=== PATIENT | female | born 1970 | race Caucasian/White ===

== ENCOUNTER 2016-07-26 17:35 | Inpatient (IN) ==
[2016-07-26 18:16] LABS: MANUAL DIFF NEEDED? NO
[2016-07-26 18:20] LABS: BASO% 0.3 % (0.0-0.8); EOS# 0.02 X1000 (0.0-0.7); EOS% 0.3 % (0.0-10.0); HEMATOCRIT 41.7 % (37.0-47.0); HEMOGLOBIN 14.2 g/dL (12.0-16.0); IMM GRAN# 0.02 X1000 (0.0-0.04); IMM GRAN% 0.3 % (0.0-0.5); LYMPH# 1.37 X1000 (1.2-3.4); LYMPH% 22.6 % (20.5-51.1); MCHC 34.1 g/dL (33-37); MCV 85.3 FL (81-99); MONO# 0.47 X1000 (0.11-0.59); MONO% 7.7 % (1.7-9.3); MPV 10.4 FL (7.4-10.4); NEUT% 68.8 % (42.2-75.2); PLT 321 X1000 (130-400); RBC 4.89 XMIL (4.2-5.4)
[2016-07-26] MEDS ORDERED: TORADOL IV ONE (18:35)
[2016-07-26] MEDS ORDERED: ZOFRAN IV ONE (18:35)
[2016-07-26] MEDS ORDERED: NS 1,000 ML IV ONE (18:35)
[2016-07-26] MEDS ORDERED: OFIRMEV 1000 MG/ISOTONIC SOLN 100 ML IV ONE (18:35)
[2016-07-26] MEDS ORDERED: PHENERGAN IV ONE (18:36)
[2016-07-26] MEDS ORDERED: MORPHINE IV ONE (18:36)
[2016-07-26] MEDS ORDERED: SODIUM CHLORIDE 0.9% INJ ONE (18:36)
--- NOTE | 2016-07-26 18:39 | PROVIDER DOCUMENTATION ---
HPI-Abdominal Pain/GI Problem <Asa Walker - Last Filed: 07/26/16 19:15> - General Source: patient - History of Present Illness-ABD Nature of Presenting Problems: Pt is a 46 yof who presents to ER with CC of generalized abdominal pain that started this am. Pt has hx of chronic pancreatitis and alcoholism. Pt reports that she had a glass of wine last night, and has had N/V(x"all day")/D(x3-4) today. Pt denies taking any prearrival medicine for her pain/discomfort. Pt denies bloody stool/emesis, sob, dysuria, or any flank pain. On exam, pt did appear mild-moderately anxious. Abdominal Pain Onset Location: reports: generalized abdomen Pain Radiation: reports: no radiation Quality of Pain: reports: aching, cramping Severity in ED: reports: moderate Onset/Duration: reports: this morning Timing: reports: still present, constant Activities at Onset: reports: other (woke up with pain) Associated Symptoms: reports: anxiety, diarrhea, loss of appetite, nausea, vomiting. denies: arm pain, back/neck pain, chest pain, constipation, cough, diaphoresis, dizziness, fatigue, fever/chills, genitourinary problems, muscle aches, shortness of breath, sensory/motor loss, pain with inspiration, syncope, weakness, trouble walking Last BM: unsure (sometime today) Dark Stools Present?: reports: none noticed Rectal Bleeding: reports: none # of Diarrhea Episodes: 4 Rectal Pain: reports: none Emesis Description: reports: none <López Garcia - Last Filed: 07/26/16 19:32> - General Chief Complaint: Abdominal Pain Stated Complaint: ABD PAIN Time Seen by Provider: 07/26/16 18:21 Allergies/Adverse Reactions: Patient Allergies Allergy/AdvReac Type Severity Reaction Status Date / Time No Known Allergies Allergy Verified 07/26/16 18:29 Home Medications: Home Medication List Medication Instructions Recorded Confirmed Last Taken Type Pantoprazole [Protonix] 40 mg PO DAILY@0700 09/02/15 07/26/16 07/26/16 06:00 History Trazodone [Desyrel] 150 mg PO QHS #30 tablet 01/24/16 07/26/16 07/25/16 20:00 Rx Promethazine [Phenergan] 1 - 2 tab PO Q6H PRN PRN #18 tablet 06/25/16 07/26/16 Unknown Rx Vortioxetine Hydrobromide 20 mg PO DAILY 06/25/16 07/26/16 07/26/16 06:00 History [Trintellix] Review of Systems - Adult - REVIEW OF SYSTEMS - ADULT Constitutional: denies: chills, fever, fatique, night sweats Eyes: reports: no symptoms reported Ears, Nose, Mouth & Throat: reports: no symptoms reported Cardiovascular: reports: no symptoms reported Respiratory: denies: cough, dyspnea on exertion, excessive sputum production, hemoptysis, shortness of breath, wheezing Gastrointestinal: reports: abdominal pain, diarrhea, nausea, poor appetite, vomiting. denies: hematemesis, constipation, difficulty swallowing, frequent heartburn, rectal bleeding Genitourinary: denies: dysuria, flank pain, frequent UTI's, hematuria, urinary retention Musculoskeletal: reports: no symptoms reported Integumentary: reports: no symptoms reported Neurological: reports: no symptoms reported Psychiatric: reports: no symptoms reported Endocrine: reports: no symptoms reported Hematologic/Lymphatic: reports: no symptoms reported Allergic/Immunologic: reports: no symptoms reported All Other Systems: Reviewed and Negative <López Garcia - Last Filed: 07/26/16 19:32> Past History - Adult - PAST MEDICAL HISTORY-ADULT Review of Records: reports: Nursing Assessment Review, Medications Reviewed Gastrointestinal: reports: colitis, pancreatitis, other (gastroparesis) Endocrine/Immune: reports: other (hypokalemia) - PRIOR SURGERIES/PROCEDURES Surgical/Procedure History: reports: colonoscopy, cholecystectomy - IMMUNIZATION STATUS Childhood Immunizations: See Nurse Assessment Flu Vaccine: See Nurse Assessment - SOCIAL HISTORY Smoking: cigarettes, less than 1 pack/day Provider spent 3-5 mins advising pt. on dangers of tobacco.: Discussed manners to quit use, and f/u contacts for add'l counseling. <López Garcia - Last Filed: 07/26/16 19:32> Physical Exam-General - PHYSICAL EXAM-ADULT Initial Vital Signs Reviewed: Yes - CONSTITUTIONAL General Appearance: appears well, alert, moderate distress, anxious. negative: lethargic, slow to respond - RESPIRATORY Respiratory: chest non-tender, lungs clear, normal breath sounds. negative: respiratory distress, decreased breath sounds, accessory muscle use, wheezing, pain on inspiration, decreased rate, increased rate - CARDIOVASCULAR Cardiovascular: normal peripheral pulses, regular rate, rhythm. negative: bradycardia, tachycardia, irregularly irregular - GASTROINTESTINAL (ABDOMEN) Abdominal Exam: normal bowel sounds, soft, tenderness (mild mid-abdominal pain on palpation). negative: abnormal bowel sounds, hernia, mass - MUSCULOSKELETAL Back Exam: no CVA tenderness, no vertebral tenderness. negative: CVA tenderness , decreased range of motion, muscle spasm, vertebral tenderness - SKIN Integumentary: normal color, normal turgor, warm/dry. negative: diaphoresis, erythema, pallor, rash, swelling, tenderness, warm - NEUROLOGIC Neurologic: grossly normal, no motor/sensory deficits. negative: abnormal gait , focal weakness, motor weakness, sensory deficit - PSYCHIATRIC Psych/Mental Status: normal thought content, normal thought process, oriented x 3, anxious <López Garcia - Last Filed: 07/26/16 19:32> Progress - PLAN OF CARE/RESULTS Progress/Plan/Lab Results: POC: IV fluids/nausea rx/pain rx/labs/abdomen-pelvis CT Vital Signs - 24 hr 07/26/16 17:51 Temperature 97.7 F Pulse Rate 93 H Respiratory 20 Rate Blood Pressure 158/103 O2 Sat by Pulse 97 Oximetry Orders Category Date Time Status ED: Urine Bedside ORDERED Care 07/26/16 17:54 Active Saline Loc DIRECTED Care 07/26/16 17:54 Active NPO Diet 07/26/16 17:54 Active ABDOMEN/PELVIS W/O CONTRAST [CT] Stat Exams 07/26/16 18:36 Ordered ALCOHOL BLOOD Stat Lab 07/26/16 17:59 Completed AMYLASE [CHEM] Stat Lab 07/26/16 17:59 Completed CBC WITH ELECTRONIC DIFF [HEME] Stat Lab 07/26/16 17:59 Completed COMPREHENSIVE METABOLIC PANEL [CHEM] Stat Lab 07/26/16 17:59 Completed LIPASE [CHEM] Stat Lab 07/26/16 17:59 Completed UDS [URINE DRUG SCREEN] Stat Lab 07/26/16 17:35 Received URINALYSIS W/POSS RFLX CULT [URINALYSIS] Stat Lab 07/26/16 17:35 Completed 0.9% Sodium Chloride Inj [Ns] 1,000 ml Med 07/26/16 18:35 Active IV 999 mls/hr Acetaminophen [Ofirmev 1000 mg/Isotonic Soln] 100 ml Med 07/26/16 18:35 Discontinued IV NOW Ketorolac [Toradol] Med 07/26/16 18:35 Discontinued 30 mg IV NOW ONE Morphine Med 07/26/16 18:36 Discontinued 4 mg IV NOW ONE Ondansetron [Zofran] Med 07/26/16 18:35 Discontinued 8 mg IV NOW ONE Promethazine [Phenergan] Med 07/26/16 18:36 Discontinued 25 mg IV NOW ONE Sodium Chloride 0.9% Med 07/26/16 18:36 Discontinued 10 ml INJ NOW ONE Laboratory Tests 07/26/16 07/26/16 07/26/16 17:35 17:59 17:59 WBC 6.07 RBC 4.89 Hgb 14.2 Hct 41.7 MCV 85.3 MCH 29.0 MCHC 34.1 RDW Std Deviation 17.2 H Plt Count 321 MPV 10.4 Immature Gran % (Auto) 0.3 Neut % (Auto) 68.8 Lymph % (Auto) 22.6 [place] % (Auto) 7.7 Eos % (Auto) 0.3 Baso % (Auto) 0.3 Immature Gran # (Auto) 0.02 Neut # (Auto) 4.17 Lymph # (Auto) 1.37 [place] # (Auto) 0.47 Eos # (Auto) 0.02 Baso # (Auto) 0.02 Sodium 130 L Potassium 3.1 L Chloride 87 L Carbon Dioxide 23 L Anion Gap 20 BUN 2 L Creatinine 0.5 Estimated GFR/1.73 m2 > 60 BUN/Creatinine Ratio 4 Glucose 135 H Calculated Osmolality 259 Calcium 8.2 L Total Bilirubin 0.18 L AST 46 H ALT 24 Alkaline Phosphatase 96 Total Protein 6.6 Albumin 3.7 Globulin 2.9 Albumin/Globulin Ratio 1.3 Amylase 247 H Lipase 391 H Urine Source CLEAN CATCH Urine Color YELLOW Urine Turbidity CLEAR Urine pH 5.5 Ur Specific [place] 1.021 Urine Protein TRACE A Ur Glucose (Stick) NEGATIVE Ur Ketones (Stick) NEGATIVE Urine Blood TRACE A Urine Nitrite NEGATIVE Urine Bilirubin NEGATIVE Urobilinogen Dipstick NORMAL Urine Leukocytes SMALL A Urine WBC (Auto) 10-20 A Urine RBC (Auto) <10 U Epithel Cells (Auto) >10 A Urine Bacteria (Auto) 2+ Plasma/Serum Ethyl Alc 07/26/16 17:59 WBC RBC Hgb Hct MCV MCH MCHC RDW Std Deviation Plt Count MPV Immature Gran % (Auto) Neut % (Auto) Lymph % (Auto) [place] % (Auto) Eos % (Auto) Baso % (Auto) Immature Gran # (Auto) Neut # (Auto) Lymph # (Auto) [place] # (Auto) Eos # (Auto) Baso # (Auto) Sodium Potassium Chloride Carbon Dioxide Anion Gap BUN Creatinine Estimated GFR/1.73 m2 BUN/Creatinine Ratio Glucose Calculated Osmolality Calcium Total Bilirubin AST ALT Alkaline Phosphatase Total Protein Albumin Globulin Albumin/Globulin Ratio Amylase Lipase Urine Source Urine Color Urine Turbidity Urine pH Ur Specific [place] Urine Protein Ur Glucose (Stick) Ur Ketones (Stick) Urine Blood Urine Nitrite Urine Bilirubin Urobilinogen Dipstick Urine Leukocytes Urine WBC (Auto) Urine RBC (Auto) U Epithel Cells (Auto) Urine Bacteria (Auto) Plasma/Serum Ethyl Alc 147 H - CT/MRI 1 CT Study: Abdomen, Pelvis Impression: See EMR Report (Acute on Chronic pancreatitis; No biliary dilation or definite abscess.) CT Results: See report - CONSULTS/PCP/HOSPITALIST Notification #1 *Consult/PCP/Hospitalist*: Dr. Plummer (Hospitalist) Time Discussed: 19:30 Consult Disposition: Admit (Dr. Walker gave report to Dr. Plummer.) <López Garcia - Last Filed: 07/26/16 19:32> Departure - Departure Time of Disposition Order: 19:15 <Asa Walker - Last Filed: 07/26/16 19:15> - Departure Time of Disposition Order: 19:17 Certified Medical Emergency: Emergent <López Garcia - Last Filed: 07/26/16 19:32> - Departure DIAGNOSIS: Acute alcoholic pancreatitis Qualifiers: Acute pancreatitis complication: unspecified Qualified Code(s): K85.20 - Alcohol induced acute pancreatitis without necrosis or infection Disposition: ADMITTED INPATIENT 09 Condition: Stable Additional Instructions: ED Follow Up Instructions: You have been treated by a care provider in the Emergency Department. These instructions are being provided to you so you can have an understanding of how to care for yourself upon discharge. Upon discharge from the Emergency Department, you are responsible for making arrangements for follow-up care by a physician of your choice. Take all prescribed medications as directed. Return to the Emergency Department immediately for any new or worsening symptoms. You may call the Physician Referral phone number at [phone] to obtain a list of Physicians who are taking new patients. Referrals: Evan Dickson MD [Primary Care Provider] - Attestation - Scribe Verification/Attestation Scribe:: López Garcia Acting as Scribe for:: Asa Walker Scribe documention review:: This chart was documented by a scribe and accurately reflects the service the provider performed and the decisions made by the provider. <López Garcia - Last Filed: 07/26/16 19:32> Physician Attestation
[2016-07-26 19:01] LABS: AGAP 20; ALBUMIN 3.7 g/dL (3.5-5.0); ALKALINE PHOSPHATASE 96 U/L (32-104); AMYLASE 247 U/L (20-200); BUN 2 mg/dL (8-22); CALCIUM 8.2 mg/dL (8.8-10.2); CHLORIDE 87 mmol/L (98-107); COSMO 259; GOT 46 U/L (10-30); GPT 24 U/L (10-36); LIPASE 391 U/L (13-60); POTASSIUM 3.1 mmol/L (3.5-5.1); SODIUM 130 mmol/L (136-145); TCO2 23 mmol/L (25-35); TOTAL BILIRUBIN 0.18 mg/dL (0.20-1.00); TOTAL PROTEIN 6.6 g/dL (6.3-8.3)
[2016-07-26 19:02] LABS: URINE MICRO REVIEW NEEDED? NO; URINE SOURCE CLEAN CATCH
[2016-07-26 19:05] LABS: BILIRUBIN URINE NEGATIVE (NEGATIVE); BLOOD URINE TRACE (NEGATIVE); COLOR YELLOW; GLUCOSE URINE NEGATIVE (NEGATIVE); LEUKOCYTES URINE SMALL (NEGATIVE); NITRITE URINE NEGATIVE (NEGATIVE); PH URINE 5.5; PROTEIN URINE TRACE mg/dL (NEGATIVE); SP GRAVITY URINE 1.021; TURBIDITY URINE CLEAR (CLEAR); UROBILINOGEN URINE NORMAL (NORMAL)
[2016-07-26 19:07] LABS: UR EPITHELIAL CELLS >10 /HPF (<10); URINE BACTERIA 2+ /HPF; URINE CULTURE NEEDED? YES; URINE RBC <10 /HPF (<10)
[2016-07-26 19:20] LABS: UR AMPHETAMINES QUAL NONE DETECTED (NONE DETECT); UR BARBITUATES QUAL NONE DETECTED (NONE DETECT); UR BENZODIAZEPIN QUAL NONE DETECTED (NONE DETECT); UR CANNABINOIDS QUAL NONE DETECTED (NONE DETECT); UR COCAINE QUAL NONE DETECTED (NONE DETECT); UR METHADONE QUAL PRESUMPTIVE POSITIVE (NONE DETECT); UR OPIATES QUAL PRESUMPTIVE POSITIVE (NONE DETECT); UR OXYCODONE QUAL NONE DETECTED (NONE DETECT); UR PCP QUAL NONE DETECTED (NONE DETECT)
[2016-07-26] MEDS ORDERED: DILAUDID IV ONE (19:20)
[2016-07-26] MEDS ORDERED: M.V.I.-12 10 ML, FOLIC ACID 1 MG, MAGNESIUM SULFATE 1 GM, THIAMINE 100 MG in NS 1,000 ML IV ONE (19:32)
[2016-07-26] MEDS ORDERED: ATIVAN IV ONE (19:32)
[2016-07-26] MEDS ORDERED: TYLENOL PO PRN (20:56)
[2016-07-26] MEDS: SODIUM CHLORIDE 0.9% INJ SCH (21:37)
[2016-07-26] MEDS: NS 1,000 ML IV SCH (21:37)
[2016-07-26] MEDS: DILAUDID IV PRN (21:38)
[2016-07-26] MEDS: PROTONIX IV SCH (21:38)
[2016-07-26] MEDS: POTASSIUM CHLORIDE 20 MEQ/SWI 100 ML IV SCH (22:00)
[2016-07-27] MEDS: DILAUDID IV PRN ×7 (00:14→21:32)
[2016-07-27] MEDS: AMBIEN PO PRN (00:51)
[2016-07-27] MEDS: NICODERM PATCH TD SCH ×2 (00:51→21:32)
[2016-07-27] MEDS ORDERED: OFIRMEV 1000 MG/ISOTONIC SOLN 100 ML IV PRN (01:00)
[2016-07-27] MEDS: ATIVAN IV PRN ×5 (01:51→21:32)
[2016-07-27] MEDS: ROCEPHIN 1 GM/NS 50 ML IV SCH ×2 (01:51→21:32)
--- NOTE | 2016-07-27 02:24 | HISTORY AND PHYSICAL ---
PRIMARY CARE PROVIDER: Dr. Jacques Dickson. CHIEF COMPLAINT: Abdominal pain. HISTORY OF PRESENT ILLNESS: Ms. Gibson is a 46-year-old female with a past medical history of pancreatitis with a history of alcohol dependency. She was most recently admitted for pancreatitis in January of 2016. Patient presented to the ER [facility] with reports of abdominal pain in the periumbilical and epigastric areas that started this morning on July 26, 2016 at 6:00 a.m. The patient states that the pain is "piercing in nature." She reports it is constant, nonradiating. She reports that nothing helps it except for pain medicine and lying flat makes it worse. She reports associated symptoms of nausea and vomiting as well as diarrhea. The patient states that she has had 6 to 8 vomiting episodes today though she denies any hematemesis. She also reports a total of 4 diarrhea episodes today only though she denies any melena. She denies any fever, body aches, or chills. Patient reports that at present she drinks approximately 3 days a week and on those 3 days she has no more than 3 glasses of wine per day. In the ER, the patient did report to ER staff that her last drink of any alcohol was a glass of wine last night though in the ER her serum alcohol level was 147. Patient reports at this time that she is still currently smoking though has cut back and is down to less than 1 pack per day and she did express the want to quit as well. I did inquire as to whether or not the patient takes methadone or any other opiate medications though she denied this but her urine drug screen in the ER did show positive for opiates as well as methadone. Patient also did report some urinary frequency though denied any dysuria or low back pain. Upon evaluation in the ER, patient laboratory results did indicate pancreatitis with a lipase of 391 and amylase of 247. A CT abdomen and pelvis with contrast did show chronic pancreatitis though no acute inflammation. There was diverticulosis though no evidence of diverticulitis. Also, patient's urinalysis was positive for trace blood, small leukocytes, and 10 to 20 white blood cells. A urine culture has been ordered and we are awaiting those results at this time. At this time, we will admit the patient for further treatment and evaluation of her acute alcoholic pancreatitis and urinary tract infection. We will admit her to our service for [facility] though in the morning we will return her to Dr. Dickson's care and place an order for him to be notified of the patient's admission. REVIEW OF SYSTEMS: A 14-point review of systems was conducted with the patient and all were negative except for pertinent positives mentioned in above HPI. PAST MEDICAL HISTORY: 1. Bulimia. 2. Excessive water intake. 3. Gastroesophageal reflux disease. 4. Hypokalemia. 5. Colitis. 6. Pancreatitis. 7. Diverticulitis. 8. Mood disorder. PAST SURGICAL HISTORY: 1. Cholecystectomy. 2. ERCP. SOCIAL HISTORY: Patient reports that she currently lives with her mother and is not working at this time. She does report that she drinks approximately 3 days a week and up to 3 glasses of wine per day on these days. She denies any illicit drug use. Patient still currently smokes just less than 1 pack of cigarettes per day and has so for the past 30 years. FAMILY HISTORY: Positive for diabetes mellitus and she also reports that there are several family members that have had a history of cancer though she does not know what etiology. ALLERGIES: Patient reports no known allergies. HOME MEDICATIONS: 1. Trintellix 20 mg p.o. daily. 2. Trazodone 150 mg p.o. at bedtime. 3. Phenergan 25 mg 1 to 2 tablets p.o. q.6 hours p.r.n. 4. Protonix 40 mg p.o. daily. DIAGNOSTIC DATA: Laboratory results: White blood cell count 6.07. Hemoglobin 14.2. Hematocrit 41.7. Platelet count is 321. Sodium 130. Potassium 3.1. Chloride 87. Bicarbonate 23. BUN 2. Creatinine 0.5. GFR is greater than 60. Glucose 135. Calcium 8.2. Total bilirubin 0.18. AST 46. ALT 24. Alkaline phosphatase is 96. Amylase 247. Lipase 391. Serum alcohol is 147. Urinalysis was positive for trace protein and blood, small leukocytes, 10 to 20 white blood cells, and 2-plus bacteria. Urine drug screen was positive for opiates and methadone. CT abdomen and pelvis with contrast showed chronic pancreatitis though no acute inflammation. Status post cholecystectomy. Normal appendix. Diverticulosis with no evidence of diverticulitis. A 1.5 cm left ovarian cyst. Bilateral L5 pars interarticularis defects. There is also mild fatty infiltration of the liver. Pending laboratory results at this time are an EKG and urine culture. PHYSICAL EXAMINATION: VITAL SIGNS: Temperature 98.4, heart rate 94, respirations 18, blood pressure 152/93, oxygen saturation is 100% room air. GENERAL: Ms. Gibson is a well-nourished, well-developed 46-year-old female who is resting in the ER stretcher. Upon my examination, she was in no acute distress. The patient was slightly drowsy due to being given pain medication prior to my assessment though she was responsive to verbal stimuli and did answer all questions appropriately. HEENT: Head is atraumatic, normocephalic. Pupils are equal, round, reactive to light, are 3 mm bilaterally and brisk. Oral mucosa is moist. Oropharynx is clear. NECK: Supple. Trachea midline. No JVD noted. CARDIOVASCULAR: Patient has a normal S1, S2. No murmurs, gallops, or rubs appreciated with a regular rate and rhythm. PULMONARY: Patient has symmetrical chest expansion bilaterally. Lung sounds are clear to auscultation in bilateral full jacques. ABDOMEN: Soft, nondistended. Patient does report tenderness upon palpation in the periumbilical as well as epigastric areas. Bowel sounds were present in all 4 quadrants though were hypoactive. EXTREMITIES: No clubbing, cyanosis, or edema noted. Pulse, motor, and sensory were intact in all extremities. Pedal pulses as well as radial pulses were 3 plus bilaterally. INTEGUMENTARY: The patient's skin is pink, warm, dry, and intact. No lesions or sores noted. NEUROLOGICAL: Patient is alert and oriented times 3. Cranial nerves II through XII are grossly intact. ASSESSMENT AND PLAN: 1. Acute alcoholic pancreatitis. For treatment of this, we will place the patient n.p.o. We will give her fluids, normal saline at 125 an hour. The patient did previously receive a 1 L normal saline bolus as well as a banana bag previously in the ER. We will treat her pain with Dilaudid 1 mg IV q.3 hours. The patient has been counseled about the need to quit drinking. We have ordered for a lipid profile to be drawn in the morning as well though this pancreatitis is likely related to her alcohol abuse and we will continue to follow this closely. 2. Nausea, vomiting. For this, we will treat with Zofran 4 mg IV q.4 to 6 hours as needed. At this time, the patient's vomiting has subsided. 3. Urinary tract infection. We have placed an order for a urine culture and are awaiting those results at this time. Given that the patient is n.p.o. and has had nausea and vomiting, we will hold oral antibiotics at this time and give her IV Rocephin 1 g q.24 hours and continue to follow. 4. Gastroesophageal reflux disease. For this, we will give her Protonix 40 mg IV q.24 hours to treat this as well as for GI prophylaxis. 5. Alcohol abuse. We will continue to youth counselor the patient the need for her to quit drinking throughout her stay and upon discharge. 6. Tobacco abuse/dependency. We did discuss the need for the patient to quit smoking with her. She did express that she does want to try to quit. The patient was instructed that she is not allowed to smoke while she is in the hospital and we have placed an order for a nicotine patch to be placed as well and we will continue to discuss with her throughout her stay and upon discharge. The patient will be placed on the medical floor with telemetry. She will have vital signs q.6 hours. We will do strict intake and output. DVT prophylaxis will be provided with SCDs. Patient's potassium was slightly low at 3.1. We will give the patient 40 mEq of potassium IV and we will repeat a BMP in the morning. Further orders and recommendations pending hospital course, diagnostic studies, and physician evaluation. Dictated by NORMA Cesar for Rodo Plummer MD pt examined, agree with above, will monitor closely for alcohol withdrawal, and continue "banana" bag APENOT MTDD
[2016-07-27] MEDS: POTASSIUM CHLORIDE 20 MEQ/SWI 100 ML IV SCH (02:40)
[2016-07-27] MEDS: ZOFRAN IV PRN ×2 (03:08→09:57)
[2016-07-27] MEDS: NS 1,000 ML IV SCH (05:40)
[2016-07-27 06:49] LABS: MANUAL DIFF NEEDED? NO
[2016-07-27 07:12] LABS: BASO% 0.1 % (0.0-0.8); EOS# 0.17 X1000 (0.0-0.7); EOS% 1.4 % (0.0-10.0); HEMATOCRIT 38.4 % (37.0-47.0); HEMOGLOBIN 12.9 g/dL (12.0-16.0); IMM GRAN# 0.02 X1000 (0.0-0.04); IMM GRAN% 0.2 % (0.0-0.5); LYMPH# 1.34 X1000 (1.2-3.4); LYMPH% 11.2 % (20.5-51.1); MCH 29.3 PG (27-31); MCHC 33.6 g/dL (33-37); MCV 87.3 FL (81-99); MONO# 0.67 X1000 (0.11-0.59); MONO% 5.6 % (1.7-9.3); NEUT% 81.5 % (42.2-75.2); PLT 260 X1000 (130-400)
[2016-07-27 07:15] LABS: AGAP 16; BUN 1 mg/dL (8-22); CALCIUM 7.7 mg/dL (8.8-10.2); CHLORIDE 96 mmol/L (98-107); COSMO 266; MAGNESIUM 1.7 mg/dL (1.5-2.7); SODIUM 135 mmol/L (136-145); TCO2 23 mmol/L (25-35)
[2016-07-27 07:36] LABS: AMYLASE 227 U/L (20-200)
[2016-07-27 07:46] LABS: LIPASE 525 U/L (13-60)
[2016-07-27] MEDS: NON-FORMULARY MED (Vortioxetine Hydrobromide [Trintellix] 20 MG) PO SCH (09:24)
--- NOTE | 2016-07-27 12:28 | PROGRESS NOTE ---
DATE: 07/27/2016 SUBJECTIVE: Ms. Gibson was admitted actually yesterday, and she was admitted for acute pancreatitis. She has history of acute alcohol intake an alcoholic gastritis. She is sick in the stomach. We will change her nausea medicine to Phenergan instead of Zofran.
[2016-07-27] MEDS: SODIUM CHLORIDE 0.9% INJ PRN ×2 (12:34→16:43)
[2016-07-27] MEDS: PHENERGAN IV PRN ×3 (12:34→21:32)
[2016-07-27] MEDS ORDERED: POTASSIUM CHLORIDE 20 MEQ, MAGNESIUM SULFATE 2 GM, THIAMINE 100 MG, FOLIC ACID 1 MG, M.... IV SCH ×6 (13:00)
[2016-07-27] MEDS: M.V.I.-12 10 ML, FOLIC ACID 1 MG, MAGNESIUM SULFATE 1 GM, THIAMINE 100 MG in NS 1,000 ML IV SCH (13:55)
[2016-07-27] MEDS ORDERED: M.V.I.-12 10 ML, FOLIC ACID 1 MG, MAGNESIUM SULFATE 1 GM, THIAMINE 100 MG in NS 1,000 ML IV SCH (18:00)
[2016-07-27] MEDS: PROTONIX IV SCH (21:32)
[2016-07-28] MEDS: DILAUDID IV PRN ×6 (00:37→21:06)
[2016-07-28] MEDS: AMBIEN PO PRN (00:37)
[2016-07-28] MEDS: PHENERGAN IV PRN (03:42)
[2016-07-28 07:03] LABS: AGAP 13; AMYLASE 113 U/L (20-200); BUN 2 mg/dL (8-22); CALCIUM 8.3 mg/dL (8.8-10.2); CHLORIDE 100 mmol/L (98-107); COSMO 269; LIPASE 182 U/L (13-60); SODIUM 137 mmol/L (136-145); TCO2 24 mmol/L (25-35)
[2016-07-28] MEDS: NON-FORMULARY MED (Vortioxetine Hydrobromide [Trintellix] 20 MG) PO SCH (08:58)
[2016-07-28] MEDS: ATIVAN IV PRN ×4 (08:59→22:46)
--- NOTE | 2016-07-28 13:27 | PROGRESS NOTE ---
DATE: 07/28/2016 SUBJECTIVE: Ms. Gibson was admitted on 07/26/2016 for acute pancreatitis. Her enzymes, especially the lipase and amylase are getting better. We will keep her on clear liquids today.
[2016-07-28] MEDS: M.V.I.-12 10 ML, FOLIC ACID 1 MG, MAGNESIUM SULFATE 1 GM, THIAMINE 100 MG in NS 1,000 ML IV SCH (14:28)
[2016-07-28] MEDS: NICODERM PATCH TD SCH (21:05)
[2016-07-28] MEDS: PROTONIX IV SCH (21:05)
[2016-07-28] MEDS: ROCEPHIN 1 GM/NS 50 ML IV SCH (21:05)
[2016-07-29] MEDS: AMBIEN PO PRN (00:14)
[2016-07-29] MEDS: DILAUDID IV PRN ×7 (00:15→21:14)
--- NOTE | 2016-07-29 06:03 | EKG Report ---
Test Performed on : 07/26/2016 11:39:06 PM Test Reason : Epigastric Pain Blood Pressure : / mmHG Vent. Rate : 084 BPM Atrial Rate : 084 BPM P-R Int : 178 ms QRS Dur : 076 ms QT Int : 394 ms P-R-T Axes : 066 093 053 degrees QTc Int : 465 ms Sinus rhythm. with marked sinus arrhythmia. Possible Left atrial enlargement Rightward axis Nonspecific ST and T wave abnormality Abnormal ECG No previous ECGs available Unconfirmed Result
[2016-07-29] MEDS: ATIVAN IV PRN ×4 (08:09→23:55)
[2016-07-29] MEDS: SODIUM CHLORIDE 0.9% INJ PRN ×2 (08:09→19:00)
[2016-07-29] MEDS: NON-FORMULARY MED (Vortioxetine Hydrobromide [Trintellix] 20 MG) PO SCH (08:10)
[2016-07-29] MEDS: M.V.I.-12 10 ML, FOLIC ACID 1 MG, MAGNESIUM SULFATE 1 GM, THIAMINE 100 MG in NS 1,000 ML IV SCH (13:50)
[2016-07-29] MEDS: PHENERGAN IV PRN (17:58)
[2016-07-29] MEDS: ROCEPHIN 1 GM/NS 50 ML IV SCH (21:14)
[2016-07-29] MEDS: PROTONIX IV SCH (21:14)
[2016-07-29] MEDS: SODIUM CHLORIDE 0.9% INJ SCH (21:14)
[2016-07-29] MEDS: NICODERM PATCH TD SCH (21:14)
[2016-07-30] MEDS: AMBIEN PO PRN (00:54)
[2016-07-30] MEDS: PHENERGAN IV PRN (03:56)
[2016-07-30] MEDS: SODIUM CHLORIDE 0.9% INJ SCH ×2 (03:56→21:06)
[2016-07-30] MEDS: DILAUDID IV PRN ×7 (03:56→22:39)
[2016-07-30 06:08] LABS: MANUAL DIFF NEEDED? NO
[2016-07-30 06:17] LABS: BASO% 0.7 % (0.0-0.8); EOS# 0.35 X1000 (0.0-0.7); EOS% 5.9 % (0.0-10.0); HEMATOCRIT 37.5 % (37.0-47.0); HEMOGLOBIN 12.1 g/dL (12.0-16.0); LYMPH# 1.32 X1000 (1.2-3.4); LYMPH% 22.3 % (20.5-51.1); MCHC 32.3 g/dL (33-37); MCV 89.9 FL (81-99); MONO# 0.49 X1000 (0.11-0.59); MONO% 8.3 % (1.7-9.3); NEUT% 62.8 % (42.2-75.2); PLT 241 X1000 (130-400); RBC 4.17 XMIL (4.2-5.4)
[2016-07-30 06:28] LABS: AGAP 13; BUN 1 mg/dL (8-22); CALCIUM 8.5 mg/dL (8.8-10.2); CHLORIDE 101 mmol/L (98-107); COSMO 275; POTASSIUM 3.3 mmol/L (3.5-5.1); SODIUM 140 mmol/L (136-145); TCO2 26 mmol/L (25-35)
[2016-07-30] MEDS: ATIVAN IV PRN ×4 (08:01→21:33)
[2016-07-30] MEDS: NON-FORMULARY MED (Vortioxetine Hydrobromide [Trintellix] 20 MG) PO SCH (08:01)
[2016-07-30] MEDS ORDERED: CALCIUM GLUCONATE 1 GM in NS 50 ML IV ONE (08:14)
[2016-07-30] MEDS: M.V.I.-12 10 ML, FOLIC ACID 1 MG, MAGNESIUM SULFATE 1 GM, THIAMINE 100 MG in NS 1,000 ML IV SCH ×2 (10:46→16:10)
[2016-07-30] MEDS: POTASSIUM CHLORIDE 20 MEQ/SWI 100 ML IV SCH ×4 (10:46→23:11)
--- NOTE | 2016-07-30 14:56 | Diag Imaging Result Document ---
PROCEDURE NAME: ABDOMEN/PELVIS W/O CONTRAST - 07/26/2016 CT UROGRAM WITHOUT CONTRAST: FINDINGS: The visualized portion of the chest is unremarkable in appearance. There are numerous calcifications within the pancreas. Compared to the previous study of 06/25/2016, there has been a marked degree of enlargement of the pancreas with peripancreatic stranding and fluid, consistent with acute pancreatitis superimposed on chronic pancreatitis changes. Given the lack of intravenous contrast. The possibility of necrosis cannot be assessed. The possibility of hemorrhage, particularly in the pancreatic head, cannot be excluded. There has been cholecystectomy. There is no evidence of biliary dilatation, the common bile duct measuring less than 6 mm. The kidneys are without evidence of stones or hydronephrosis. The spleen contains granulomata but is not enlarged. The liver is grossly normal in appearance. There is no evidence of appendicitis. There is diverticulosis in the sigmoid colon without evidence of active diverticulitis. There is an apparent 2 cm right ovarian cyst. The urinary bladder is thickened in appearance but contracted. Considering the degree of dilatation, it has probably not changed significantly since 06/25/2016. The regional skeleton is stable in appearance. There is chronic spondylolysis at L5. IMPRESSION: Acute superimposed on chronic pancreatitis as described.
[2016-07-30] MEDS: NS 500 ML IV SCH ×2 (17:33→21:06)
[2016-07-30] MEDS: NICODERM PATCH TD SCH (21:06)
[2016-07-30] MEDS: PROTONIX IV SCH (21:06)
[2016-07-30] MEDS: ROCEPHIN 1 GM/NS 50 ML IV SCH (22:39)
[2016-07-31] MEDS: AMBIEN PO PRN (00:34)
[2016-07-31] MEDS: ATIVAN IV PRN ×2 (02:29→06:25)
[2016-07-31] MEDS: DILAUDID IV PRN ×2 (03:44→08:13)
[2016-07-31 07:44] VITALS: BP 151/100
[2016-07-31] MEDS: NON-FORMULARY MED (Vortioxetine Hydrobromide [Trintellix] 20 MG) PO SCH (08:13)
--- NOTE | 2016-08-03 11:02 | DISCHARGE SUMMARY ---
ADMISSION DATE: 07/26/2016 DISCHARGE DATE: 07/31/2016 DISCHARGING DIAGNOSIS: Abdominal pain due to acute pancreatitis on chronic pancreatitis due to alcohol. SECONDARY DIAGNOSES: 1. History of alcohol abuse. Failed detox programs. 2. History of bulimia. 3. History of acid reflux disease. 4. History of chronic pancreatitis with calcifications. 5. History of anxiety/depression. BRIEF HISTORY: Please see the H and P that was done by hospitalist on 2016. In brief, she is a 46-year-old white pleasant female who has been suffering from depression, anxiety, marital problems, history of alcohol use, failed detox. She has been [facility] several times [facility] the [facility]. She was treated for severe depression and anxiety. She has been sober for a long time and failed and having binging drinking and came in with abdominal pain, elevated amylase, lipase. Nausea vomiting. The initial CT of the abdomen and pelvis showed acute pancreatitis with underlying chronic pancreatitis with calcification changes noted. She was treated symptomatically with IV fluids, IV Protonix. Replace the potassium and electrolytes and pain control. I had a long discussion with the patient that she refused to go for detox programs. She gave me the permission to discuss with her mother and, at this time he is going to stop drinking alcohol. LABORATORY DATA: CBC: White cell count 5.9, hematocrit 37, platelets 241,000. SMA-7: Sodium 140, potassium 3.3, chloride 101. BUN 1, creatinine 0.4. Calcium 8.5. Cholesterol 112 triglycerides 207, HDL 21. Peak amylase was 247. Urine toxic screen was positive for opiates, methadone, alcohol 147. Urine cultures were negative. IMAGING: CT scan of the abdomen and pelvis: Acute pancreatitis. DISCHARGE MEDICATIONS: 1. Protonix 40 mg daily. 2. Trintex 20 mg daily. 3. Ambien 10 at bedtime. 4. Trazodone 150 at bedtime. 5. Creon capsule 1 tablet t.i.d.. DISCHARGE INSTRUCTIONS: Abstain from alcohol. Outpatient detox programs. Follow up in my office next week as well as with a psychiatrist. [facility]evin
== END 2016-07-31 09:51 | disposition home or self-care (01) | DRG 439 ==
LOC: ED 17:35 → 4N 17:36
PROVIDERS: ADMIT Internal Medicine; ATTEND Internal Medicine
DX: K85.20 Alcohol induced acute pancreatitis without necrosis or infection (principal); N39.0 Urinary tract infection, site not specified; E87.6 Hypokalemia; K86.0 Alcohol-induced chronic pancreatitis; F10.20 Alcohol dependence, uncomplicated; F17.210 Nicotine dependence, cigarettes, uncomplicated; Z71.6 Tobacco abuse counseling; K57.30 Diverticulosis of large intestine without perforation or abscess without bleeding; K21.9 Gastro-esophageal reflux disease without esophagitis; F39 Unspecified mood [affective] disorder; Z83.3 Family history of diabetes mellitus; Z80.9 Family history of malignant neoplasm, unspecified; N83.202 Unspecified ovarian cyst, left side
CPT/HCPCS: 36415; 74176; 80048; 80053; 80061; 81001; 81025; 82150; 83690; 83721; 83735; 84484; 85025; 87088; 93005; 93010; 94761; 96361; 96365; 96375; C9113; G0480; J0131; J0610; J0696; J1170; J1885; J2060; J2270; J2405; J2550; J3411; J3475; J3480; J7030; J7040; 80320; 80324; 80345; 80346; 80349; 80353; 80358; 80361; 80365; 83992; S0164

== ENCOUNTER 2016-08-06 13:40 | Inpatient (IN) ==
[2016-08-06] MEDS ORDERED: DEMEROL IV PRN (14:28)
[2016-08-06 15:23] LABS: MANUAL DIFF NEEDED? NO
[2016-08-06 15:29] LABS: BASO% 0.4 % (0.0-0.8); EOS# 0.13 X1000 (0.0-0.7); EOS% 1.5 % (0.0-10.0); HEMATOCRIT 39.1 % (37.0-47.0); HEMOGLOBIN 13.2 g/dL (12.0-16.0); IMM GRAN# 0.04 X1000 (0.0-0.04); IMM GRAN% 0.5 % (0.0-0.5); LYMPH# 1.95 X1000 (1.2-3.4); LYMPH% 22.8 % (20.5-51.1); MCH 30.5 PG (27-31); MCHC 33.8 g/dL (33-37); MCV 90.3 FL (81-99); MONO# 0.81 X1000 (0.11-0.59); MONO% 9.5 % (1.7-9.3); MPV 10.2 FL (7.4-10.4); NEUT% 65.3 % (42.2-75.2); PLT 345 X1000 (130-400); RBC 4.33 XMIL (4.2-5.4)
[2016-08-06] MEDS: PROTONIX IV SCH (16:00)
[2016-08-06] MEDS: SODIUM CHLORIDE 0.9% INJ SCH (16:00)
[2016-08-06] MEDS: NS 1,000 ML IV SCH (16:03)
[2016-08-06 16:04] LABS: AGAP 16; ALBUMIN 3.6 g/dL (3.5-5.0); ALKALINE PHOSPHATASE 96 U/L (32-104); AMYLASE 59 U/L (20-200); BUN 2 mg/dL (8-22); CALCIUM 9.3 mg/dL (8.8-10.2); CHLORIDE 86 mmol/L (98-107); COSMO 259; GOT 18 U/L (10-30); GPT 9 U/L (10-36); MAGNESIUM 1.3 mg/dL (1.5-2.7); POTASSIUM 3.3 mmol/L (3.5-5.1); SODIUM 131 mmol/L (136-145); TCO2 29 mmol/L (25-35); TOTAL BILIRUBIN 0.23 mg/dL (0.20-1.00); TOTAL PROTEIN 6.4 g/dL (6.3-8.3)
--- NOTE | 2016-08-06 17:01 | Diag Imaging Result Document ---
PROCEDURE NAME: CT ABD/PELVIS W/ IV CONT ONLY - 08/06/2016 CT ABDOMEN AND PELVIS WITH ORAL AND INTRAVENOUS CONTRAST. DOSE REDUCTION PROTOCOL. COMPARISON: 07/26/2016. FINDINGS: There are multiple scattered pancreatic calcifications. There are no adjacent inflammatory changes on the current exam. The pancreas is no longer edematous. No pseudocyst. The gallbladder has been removed. No focal hepatic abnormality. The spleen is not enlarged. There are scattered splenic granulomata. Normal adrenal glands. Normal enhancement of the kidneys. No hydronephrosis. No aortic aneurysm. No bowel obstruction. Normal appendix. No abscess. There are many scattered diverticula in the sigmoid colon. Questionable wall thickening. However, there are no adjacent inflammatory changes. The appearance is unchanged from that of the prior study. The urinary bladder is distended and appears normal. The uterus is normal. Neither ovary is enlarged. IMPRESSION: 1. Resolution of the acute pancreatitis. There are findings of chronic pancreatitis. 2. Cholecystectomy. 3. Diverticulosis. The appearance of the sigmoid colon may simply be due to incomplete distention.
[2016-08-06] MEDS: M.V.I.-12 10 ML, FOLIC ACID 1 MG, MAGNESIUM SULFATE 1 GM, THIAMINE 100 MG in NS 1,000 ML IV ONE (17:20)
[2016-08-06] MEDS: DEMEROL IV PRN ×3 (17:20→22:53)
[2016-08-06] MEDS: PHENERGAN IV PRN (18:36)
--- NOTE | 2016-08-06 21:54 | HISTORY AND PHYSICAL ---
CHIEF COMPLAINT: Intractable abdominal pain. Recently discharged from the hospital. HISTORY OF PRESENT ILLNESS: She is a 46-year-old white female, recently discharged from the hospital due to acute pancreatitis and chronic pancreatitis due to alcohol. Recently seen by Dr. Nelson for severe depression. She stopped drinking alcohol. She walked in with her mother with intractable back pain, nausea, not able to the eat. Basically, admitted to the hospital for rule out pseudocyst. She is also in excruciating pain. As a result, a hospital admission was warranted. There is no fever. PAST MEDICAL HISTORY: Chronic pancreatitis, diverticulosis, anxiety/depression. Nicotine dependency. Borderline personality disorder. Acid reflux disease. History of bulimia. PAST SURGICAL HISTORY: Cholecystectomy. ERCP. MEDICATIONS: Creon capsule. Protonix. Trintellix 20 mg. Ambien 10 at bedtime. Trazodone 150. ALLERGIES: Not known. SOCIAL HISTORY: Smoking half a pack a day. Binge drinking. 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 FAMILY HISTORY: Father is 74 years old. Mom has hypertension, hyperlipidemia. Aunt had a colon cancer. Last period was 2014. REVIEW OF SYSTEMS: HEENT: No headache, no vision problem. No earache. No sore throat. Neck: No goiter. No lymphadenopathy. No bruit. Cardiopulmonary: No chest pain, shortness of breath, PND, orthopnea. Gastrointestinal: Nausea. Right upper quadrant pain and abdominal pain. No history of constipation. No bleeding per rectum. : No history of hesitancy, frequency. No swelling of feet. No joint pain. Neurologic: No focal symptoms or weakness. PHYSICAL EXAMINATION: VITAL SIGNS: Stable. HEIGHT AND WEIGHT: 5 feet 9, 149 pounds. HEENT: Atraumatic, normocephalic. Pupils equal, react to light. TMs are normal. Nose and throat within normal limits. NECK: Supple. No lymphadenopathy. No goiter. CHEST: Bilateral air entry. No rales, no wheezing. HEART: Sounds are regular. ABDOMEN: Belly is soft. Tender in the right upper quadrant area. No signs of guarding or rigidity. EXTREMITIES: No peripheral edema, cyanosis. NEUROLOGIC: No obvious neurological deficits. INVESTIGATIONS: CBC is normal. SMA7: Sodium 131, potassium 3.3. LFTs were normal. Amylase was normal. CT scan of the abdomen and pelvis is pending. ASSESSMENT AND PLAN: 1. A 46-year-old white female, recently had acute pancreatitis due to alcohol, came in with severe abdominal pain. Rule out pancreatic pseudocyst or abscess. Follow up on computed tomography scan of the abdomen and pelvis. Currently nothing per oral until the computed tomography scan findings. Symptomatic treatment with Demerol for pain. Phenergan for nausea. Intravenous fluids and intravenous Protonix. We will reconcile home medications in the morning and will follow up. 2. Anxiety and depression. Under the care of Dr. Nelson, waiting for ECT treatment. 3. Alcohol dependency. Counseling was done through the family.
[2016-08-06] MEDS: POTASSIUM CHLORIDE 20 MEQ/SWI 100 ML IV SCH (21:56)
[2016-08-07] MEDS: POTASSIUM CHLORIDE 20 MEQ/SWI 100 ML IV SCH (03:01)
[2016-08-07] MEDS: DEMEROL IV PRN ×2 (03:07→16:57)
[2016-08-07] MEDS: SODIUM CHLORIDE 0.9% INJ SCH ×4 (05:24→15:33)
[2016-08-07] MEDS: PHENERGAN IV PRN ×3 (05:24→15:33)
[2016-08-07] MEDS: DILAUDID IV PRN ×5 (09:02→22:35)
[2016-08-07] MEDS: NS 1,000 ML IV SCH ×4 (11:25→22:34)
[2016-08-07] MEDS: PROTONIX IV SCH (14:07)
[2016-08-07] MEDS: PROZAC PO SCH (22:34)
[2016-08-07] MEDS: DESYREL PO SCH (22:35)
[2016-08-07] MEDS: AMBIEN PO SCH (22:35)
[2016-08-08] MEDS: DILAUDID IV PRN ×2 (02:41→06:01)
[2016-08-08] MEDS: DEMEROL IV PRN (03:58)
[2016-08-08] MEDS: PHENERGAN IV PRN ×3 (06:01→17:15)
[2016-08-08] MEDS: CREON PO SCH ×3 (06:04→17:05)
[2016-08-08] MEDS: NS 1,000 ML IV SCH ×2 (06:05→17:26)
[2016-08-08 07:09] LABS: AGAP 12; BUN 1 mg/dL (8-22); CALCIUM 8.4 mg/dL (8.8-10.2); CHLORIDE 93 mmol/L (98-107); COSMO 262; POTASSIUM 3.4 mmol/L (3.5-5.1); SODIUM 133 mmol/L (136-145); TCO2 28 mmol/L (25-35)
[2016-08-08] MEDS: LOVENOX SUBQ SCH (08:59)
[2016-08-08] MEDS: TORADOL IV PRN ×2 (08:59→15:31)
[2016-08-08] MEDS: POTASSIUM CHLORIDE 60 MEQ in NS 500 ML IV SCH ×2 (10:14→17:05)
[2016-08-08] MEDS: SODIUM CHLORIDE 0.9% INJ SCH ×2 (10:38→17:17)
[2016-08-08] MEDS: PROTONIX IV SCH (14:23)
[2016-08-08] MEDS: GEODON PO SCH (17:05)
[2016-08-09] MEDS: TORADOL IV PRN ×4 (00:01→23:09)
[2016-08-09] MEDS: AMBIEN PO SCH ×2 (00:01→21:44)
[2016-08-09] MEDS: PROZAC PO SCH ×2 (00:01→21:44)
[2016-08-09] MEDS: PHENERGAN IV PRN ×5 (01:17→23:09)
[2016-08-09] MEDS: NS 1,000 ML IV SCH ×4 (01:29→23:09)
[2016-08-09] MEDS: CREON PO SCH ×3 (07:37→15:23)
[2016-08-09] MEDS: LOVENOX SUBQ SCH (09:46)
[2016-08-09] MEDS: POTASSIUM CHLORIDE 60 MEQ in NS 500 ML IV SCH ×2 (09:47→18:25)
[2016-08-09] MEDS ORDERED: VIVITROL IM ONE (10:30)
[2016-08-09] MEDS: PROTONIX IV SCH (15:22)
[2016-08-09] MEDS: SODIUM CHLORIDE 0.9% INJ SCH ×2 (15:22→23:09)
[2016-08-09] MEDS: GEODON PO SCH (18:27)
[2016-08-09] MEDS: DESYREL PO SCH ×2 (21:43)
[2016-08-10] MEDS: CREON PO SCH (06:12)
[2016-08-10] MEDS: NS 1,000 ML IV SCH (06:54)
[2016-08-10 07:53] VITALS: BP 120/76
[2016-08-10] MEDS: TORADOL IV PRN (09:41)
--- NOTE | 2016-08-11 17:13 | DISCHARGE SUMMARY ---
ADMISSION DATE: 08/06/2016 DISCHARGE DATE: 08/10/2016 DISCHARGING DIAGNOSIS: Intractable abdominal pain due to alcoholic pancreatitis. SECONDARY DIAGNOSES: 1. Chronic pancreatitis. 2. Diverticulosis. 3. Severe depression/anxiety. 4. Acid reflux disease. 5. History of bulimia. 6. History of alcohol dependency. 7. History of nicotine dependency. 8. Borderline personality disorder. BRIEF HISTORY: Please see the H and P that was done on 08/06/2016. In brief, she is a 46-year- old white female, who was readmitted to the hospital after recently had acute pancreatitis due to alcohol. I had a long discussion with the family members. She is doing off and on binge drinking and failed outpatient detox program, which includes the [facility], [facility] and also inpatient detox in [place]. Nevertheless, she is also suffering from chronic anxiety and depression under the care of Dr. Nelson. Medications were maxed out and basically she is going for ECT treatment some time in the future. She is complaining of intractable abdominal pain, nausea, vomiting. She was dehydrated. She was started on IV fluids and potassium replacement. Followup CT scan did not show evidence of any pancreatic pseudocyst or abscess. Patient findings have been reassured. I offered discussion with the patient and the family. I tried to detox alcohol by using Vivitrol once a month. She is willing to take it. She is not able to take the oral medications. All the narcotics were discontinued for 24 hours, and she was given Toradol for p.r.n. pain. She was given 380 mg of Vivitrol IM shot before she left from the hospital. She will continue the injection once a month as an outpatient. PERTINENT DATA: CBC: White cell count 8.5, hematocrit 39, platelets 345,000. SMA7 is normal. LFTs were normal. Amylase is 59. CT scan of the abdomen and pelvis: Resolution of acute pancreatitis, cholecystectomy, diverticulosis. MEDICATIONS: Protonix 40 daily, Ambien 10 at bedtime, Creon capsule 1 tablet p.o. t.i.d., Prozac 20 daily, Geodon 40 daily, trazodone 300 bedtime, Inderal 40 mg p.o. b.i.d., Vivitrol 380 mg once a month. DISCHARGE INSTRUCTIONS: She is due for September 09 and follow up with Dr. Nelson for electroconvulsive therapy treatment as well as in my office in 10 days.
== END 2016-08-10 09:57 | disposition home or self-care (01) | DRG 440 ==
LOC: EEVIPCON 13:40 → DIRADM 13:40 → 4N 14:17
PROVIDERS: ADMIT Internal Medicine; ATTEND Internal Medicine
DX: K86.0 Alcohol-induced chronic pancreatitis (principal); F32.9 Major depressive disorder, single episode, unspecified; F41.9 Anxiety disorder, unspecified; F10.20 Alcohol dependence, uncomplicated; K57.90 Diverticulosis of intestine, part unspecified, without perforation or abscess without bleeding; K21.9 Gastro-esophageal reflux disease without esophagitis; Z79.899 Other long term (current) drug therapy; Z82.49 Family history of ischemic heart disease and other diseases of the circulatory system; E86.0 Dehydration
CPT/HCPCS: 74177; 80048; 80053; 82150; 83735; 85025; 86140; C9113; J1170; J1650; J1885; J2175; J2315; J2550; J3411; J3475; J3480; J7030; J7040; Q9967; S0164

== ENCOUNTER 2016-08-21 18:32 | Emergency (ER) ==
[2016-08-21 19:06] LABS: URINE SOURCE CLEAN CATCH
[2016-08-21 19:06] LABS: MANUAL DIFF NEEDED? NO
[2016-08-21 19:11] LABS: BILIRUBIN URINE SMALL (NEGATIVE); BLOOD URINE TRACE (NEGATIVE); COLOR ORANGE; GLUCOSE URINE TRACE mg/dL (NEGATIVE); LEUKOCYTES URINE TRACE (NEGATIVE); NITRITE URINE NEGATIVE (NEGATIVE); PROTEIN URINE 300 mg/dL (NEGATIVE); SP GRAVITY URINE 1.031; TURBIDITY URINE HAZY (CLEAR); UROBILINOGEN URINE 6 mg/dL (NORMAL)
[2016-08-21 19:11] LABS: BASO% 0.2 % (0.0-0.8); EOS# 0.02 X1000 (0.0-0.7); EOS% 0.2 % (0.0-10.0); HEMATOCRIT 47.7 % (37.0-47.0); HEMOGLOBIN 16.2 g/dL (12.0-16.0); IMM GRAN# 0.05 X1000 (0.0-0.04); IMM GRAN% 0.4 % (0.0-0.5); LYMPH# 1.58 X1000 (1.2-3.4); LYMPH% 12.7 % (20.5-51.1); MCH 29.4 PG (27-31); MCV 86.6 FL (81-99); MONO# 1.02 X1000 (0.11-0.59); MONO% 8.2 % (1.7-9.3); NEUT% 78.3 % (42.2-75.2); PLT 367 X1000 (130-400); RBC 5.51 XMIL (4.2-5.4)
[2016-08-21 19:14] LABS: URINE MICRO REVIEW NEEDED? YES
[2016-08-21 19:15] LABS: UR EPITHELIAL CELLS >10 /HPF (<10); URINE BACTERIA NEGATIVE /HPF; URINE CULTURE NEEDED? YES; URINE WBC <10 /HPF (<10)
[2016-08-21 19:21] LABS: URINE CASTS NONE SEEN; URINE CRYSTALS NONE SEEN; URINE SMALL ROUND CELLS NONE SEEN
[2016-08-21 19:37] LABS: AGAP 22; ALBUMIN 4.4 g/dL (3.5-5.0); ALKALINE PHOSPHATASE 95 U/L (32-104); AMYLASE 88 U/L (20-200); BUN 6 mg/dL (8-22); CALCIUM 9.8 mg/dL (8.8-10.2); CHLORIDE 83 mmol/L (98-107); COSMO 267; GOT 38 U/L (10-30); GPT 39 U/L (10-36); LIPASE 60 U/L (13-60); SODIUM 133 mmol/L (136-145); TCO2 28 mmol/L (25-35); TOTAL BILIRUBIN 0.64 mg/dL (0.20-1.00); TOTAL PROTEIN 8.2 g/dL (6.3-8.3)
[2016-08-21] MEDS ORDERED: NS 1,000 ML IV ONE ×2 (20:31)
[2016-08-21] MEDS ORDERED: SODIUM CHLORIDE 0.9% INJ ONE ×2 (20:32→23:34)
[2016-08-21] MEDS ORDERED: PHENERGAN IV ONE ×2 (20:32→23:34)
[2016-08-21] MEDS ORDERED: DILAUDID IV ONE ×2 (20:33→22:07)
--- NOTE | 2016-08-21 20:35 | PROVIDER DOCUMENTATION ---
HPI-Abdominal Pain/GI Problem <Asa Walker CarrollJohnson - Last Filed: 08/21/16 23:37> - General Source: patient - History of Present Illness-ABD Nature of Presenting Problems: 46 year old F presents to the ED with a cc of chronic nausea and ABD pain. PT states that she began vomiting yesterday. PT states that she is unable to keep anything down. PT states that Phenergan suppositories are not helping. PT states that she saw PCP yesterday and was told that it was her chronic pancreatitis. Abdominal Pain Onset Location: reports: generalized abdomen Pain Radiation: reports: no radiation Quality of Pain: reports: aching Severity in ED: reports: mild Onset/Duration: reports: other (chronic) Timing: reports: still present Associated Symptoms: reports: nausea, vomiting Bruising or Bleeding Gums?: No Similar Symptoms Previously?: Yes Recently seen or treated by another doctor?: Yes <Anel Caicedo - Last Filed: 08/22/16 01:19> - General Chief Complaint: Vomiting Stated Complaint: ABD PAIN, VOMITING Time Seen by Provider: 08/21/16 19:55 Allergies/Adverse Reactions: Patient Allergies Allergy/AdvReac Type Severity Reaction Status Date / Time No Known Allergies Allergy Verified 07/26/16 18:29 Home Medications: Home Medication List Medication Instructions Recorded Confirmed Last Taken Type Pantoprazole [Protonix] 40 mg PO DAILY@0700 09/02/15 08/21/16 08/20/16 History Lipase/Protease/Amylase [Creon Dr 1 each PO TID #90 capsule. 07/31/1608/20/16 Rx 12,000 Units Capsule] Zolpidem Tartrate [Ambien] 10 mg PO HS #30 tablet 07/31/16 08/21/16 08/20/16 Rx Fluoxetine [Prozac] 20 mg PO HS 08/07/16 08/21/16 08/20/16 History Metformin [Glucophage] 500 mg PO TID 08/07/16 08/21/16 08/20/16 History Propranolol [Inderal] 40 mg PO BID 08/07/16 08/21/16 08/20/16 History Trazodone [Desyrel] 300 mg PO HS 08/07/16 08/21/16 08/20/16 History Ziprasidone [Geodon] 40 mg PO DAILY 08/07/16 08/21/16 08/20/16 History Naltrexone Microspheres [Vivitrol] 380 mg IM DIRECTED #3 [email or web address] 08/10/16 08/21/16 08/20/16 Rx Review of Systems - Adult - REVIEW OF SYSTEMS - ADULT Constitutional: denies: chills, fever Eyes: reports: no symptoms reported Ears, Nose, Mouth & Throat: reports: no symptoms reported Cardiovascular: denies: chest pain, palpitations Respiratory: denies: cough, shortness of breath Gastrointestinal: reports: abdominal pain, nausea, vomiting. denies: constipation, diarrhea Genitourinary: denies: dysuria, hematuria Musculoskeletal: reports: no symptoms reported Integumentary: reports: no symptoms reported Neurological: reports: no symptoms reported Psychiatric: reports: no symptoms reported Endocrine: reports: no symptoms reported Hematologic/Lymphatic: reports: no symptoms reported Allergic/Immunologic: reports: no symptoms reported All Other Systems: Reviewed and Negative <Anel Caicedo - Last Filed: 08/22/16 01:19> Past History - Adult - PAST MEDICAL HISTORY-ADULT Review of Records: reports: Nursing Assessment Review, Medications Reviewed Major Childhood Illnesses: reports: denies history Gastrointestinal: reports: colitis, pancreatitis, other (gastroparesis) Endocrine/Immune: reports: other (hypokalemia) - PRIOR SURGERIES/PROCEDURES Surgical/Procedure History: reports: colonoscopy, cholecystectomy - IMMUNIZATION STATUS Childhood Immunizations: See Nurse Assessment Flu Vaccine: See Nurse Assessment - SOCIAL HISTORY Smoking: cigarettes, greater than 1 pack/day Provider spent 3-5 mins advising pt. on dangers of tobacco.: Discussed manners to quit use, and f/u contacts for add'l counseling. <Anel Caicedo - Last Filed: 08/22/16 01:19> Physical Exam-General - PHYSICAL EXAM-ADULT Initial Vital Signs Reviewed: Yes - CONSTITUTIONAL General Appearance: appears well, alert, no apparent distress - RESPIRATORY Respiratory: chest non-tender, lungs clear, normal breath sounds - CARDIOVASCULAR Cardiovascular: normal peripheral pulses, regular rate, rhythm, no edema - GASTROINTESTINAL (ABDOMEN) Abdominal Exam: normal bowel sounds, non tender, soft - MUSCULOSKELETAL Extremity: normal inspection - SKIN Integumentary: normal color, normal turgor, warm/dry - PSYCHIATRIC Psych/Mental Status: normal mood/affect, normal thought content, normal thought process, oriented x 3 <Anel Caicedo - Last Filed: 08/22/16 01:19> Progress - REASSESSMENT Reassessment #1 Time Reassessed: 23:34 (vomiting easily controlled by phenergan) Status: improving <Asa Walker - Last Filed: 08/21/16 23:37> - PLAN OF CARE/RESULTS Progress/Plan/Lab Results: Orders Category Date Time Status Saline Loc DIRECTED Care 08/21/16 18:48 Active NPO Diet 08/21/16 18:48 Completed ALCOHOL BLOOD Stat Lab 08/21/16 18:56 Completed AMYLASE [CHEM] Stat Lab 08/21/16 18:56 Completed CBC WITH ELECTRONIC DIFF [HEME] Stat Lab 08/21/16 18:56 Completed COMPREHENSIVE METABOLIC PANEL [CHEM] Stat Lab 08/21/16 18:56 Completed LIPASE [CHEM] Stat Lab 08/21/16 18:56 Completed MAGNESIUM [CHEM] Stat Lab 08/21/16 18:56 Completed URINALYSIS W/POSS RFLX CULT [URINALYSIS] Stat Lab 08/21/16 19:00 Completed URINE CULTURE [RM] Routine Lab 08/21/16 19:30 Received URINE MANUAL MICROSCOPIC [URINALYSIS] Stat Lab 08/21/16 19:00 Completed 0.9% Sodium Chloride Inj [Ns] 1,000 ml Med 08/21/16 20:31 Discontinued IV 999 mls/hr 0.9% Sodium Chloride Inj [Ns] 1,000 ml Med 08/21/16 20:31 Discontinued IV 999 mls/hr Hydromorphone [Dilaudid] Med 08/21/16 20:33 Discontinued 1 mg IV NOW ONE Hydromorphone [Dilaudid] Med 08/21/16 22:07 Discontinued 1 mg IV NOW ONE Promethazine [Phenergan] Med 08/21/16 20:32 Discontinued 25 mg IV NOW ONE Promethazine [Phenergan] Med 08/21/16 23:34 Discontinued 25 mg IV NOW ONE Sodium Chloride 0.9% Med 08/21/16 20:32 Discontinued 10 ml INJ NOW ONE Sodium Chloride 0.9% Med 08/21/16 23:34 Discontinued 10 ml INJ NOW ONE Laboratory Tests 08/21/16 08/21/16 08/21/16 18:56 18:56 18:56 WBC 12.43 H RBC 5.51 H Hgb 16.2 H Hct 47.7 H MCV 86.6 MCH 29.4 MCHC 34.0 RDW Std Deviation 16.7 H Plt Count 367 MPV 11.0 H Immature Gran % (Auto) 0.4 Neut % (Auto) 78.3 H Lymph % (Auto) 12.7 L [place] % (Auto) 8.2 Eos % (Auto) 0.2 Baso % (Auto) 0.2 Immature Gran # (Auto) 0.05 H Neut # (Auto) 9.74 H Lymph # (Auto) 1.58 [place] # (Auto) 1.02 H Eos # (Auto) 0.02 Baso # (Auto) 0.02 Sodium 133 L Potassium 3.0 L Chloride 83 L Carbon Dioxide 28 Anion Gap 22 BUN 6 L Creatinine 0.8 Estimated GFR/1.73 m2 > 60 BUN/Creatinine Ratio 8 Glucose 149 H Calculated Osmolality 267 Calcium 9.8 Magnesium 1.8 Total Bilirubin 0.64 AST 38 H ALT 39 H Alkaline Phosphatase 95 Total Protein 8.2 Albumin 4.4 Globulin 3.8 Albumin/Globulin Ratio 1.2 Amylase 88 Lipase 60 Urine Source Urine Color Urine Turbidity Urine pH Ur Specific Agency Urine Protein Ur Glucose (Stick) Ur Ketones (Stick) Urine Blood Urine Nitrite Urine Bilirubin Urobilinogen Dipstick Urine Leukocytes Urine WBC (Auto) Urine RBC (Auto) U Epithel Cells (Auto) Urine Bacteria (Auto) Urine Crystals Small Round Cells Urine Casts Urine Yeast-like Cells Plasma/Serum Ethyl Alc 08/21/16 08/21/16 18:56 19:00 WBC RBC Hgb Hct MCV MCH MCHC RDW Std Deviation Plt Count MPV Immature Gran % (Auto) Neut % (Auto) Lymph % (Auto) [place] % (Auto) Eos % (Auto) Baso % (Auto) Immature Gran # (Auto) Neut # (Auto) Lymph # (Auto) [place] # (Auto) Eos # (Auto) Baso # (Auto) Sodium Potassium Chloride Carbon Dioxide Anion Gap BUN Creatinine Estimated GFR/1.73 m2 BUN/Creatinine Ratio Glucose Calculated Osmolality Calcium Magnesium Total Bilirubin AST ALT Alkaline Phosphatase Total Protein Albumin Globulin Albumin/Globulin Ratio Amylase Lipase Urine Source CLEAN CATCH Urine Color ORANGE Urine Turbidity HAZY Urine pH 6.0 Ur Specific Agency 1.031 Urine Protein 300 A Ur Glucose (Stick) TRACE Ur Ketones (Stick) 40 A Urine Blood TRACE A Urine Nitrite NEGATIVE Urine Bilirubin SMALL A Urobilinogen Dipstick 6 A Urine Leukocytes TRACE A Urine WBC (Auto) <10 Urine RBC (Auto) 10-20 A U Epithel Cells (Auto) >10 A Urine Bacteria (Auto) NEGATIVE Urine Crystals NONE SEEN Small Round Cells NONE SEEN Urine Casts NONE SEEN Urine Yeast-like Cells NONE SEEN Plasma/Serum Ethyl Alc Vital Signs - 24 hr 08/21/16 08/21/16 18:45 23:03 Temperature 98.2 F Pulse Rate 138 H 98 H Respiratory 19 14 Rate Blood Pressure 133/92 128/90 O2 Sat by Pulse 97 99 Oximetry <Anel Caicedo - Last Filed: 08/22/16 01:19> Departure - Departure Time of Disposition Order: 23:35 Certified Medical Emergency: Emergent <Asa Walker - Last Filed: 08/21/16 23:37> <Anel Caicedo - Last Filed: 08/22/16 01:19> - Departure DIAGNOSIS: Chronic pancreatitis Qualifiers: Pancreatitis type: alcohol induced Qualified Code(s): K86.0 - Alcohol-induced chronic pancreatitis Disposition: HOME 01 Condition: Good Additional Instructions: ED Follow Up Instructions: You have been treated by a care provider in the Emergency Department. These instructions are being provided to you so you can have an understanding of how to care for yourself upon discharge. Upon discharge from the Emergency Department, you are responsible for making arrangements for follow-up care by a physician of your choice. Take all prescribed medications as directed. Return to the Emergency Department immediately for any new or worsening symptoms. You may call the Physician Referral phone number at [phone] to obtain a list of Physicians who are taking new patients. Referrals: Evan Dickson MD [Primary Care Provider] - Instructions: Abdominal Pain, Adult, [id number] Attestation - Scribe Verification/Attestation Scribe:: Anel Caicedo Acting as Scribe for:: Asa Walker Scribe documention review:: This chart was documented by a scribe and accurately reflects the service the provider performed and the decisions made by the provider. <Anel Caicedo - Last Filed: 08/22/16 01:19> Physician Attestation
[2016-08-21 23:04] VITALS: BP 128/90
== END 2016-08-21 23:56 | disposition home or self-care (01) ==
LOC: ED 18:32
DX: K86.0 Alcohol-induced chronic pancreatitis (principal); R10.84 Generalized abdominal pain; R11.2 Nausea with vomiting, unspecified; F17.210 Nicotine dependence, cigarettes, uncomplicated; Z79.899 Other long term (current) drug therapy; Z71.6 Tobacco abuse counseling
CPT/HCPCS: 80053; 81001; 82150; 83690; 83735; 85025; 87088; G0480; J1170; J2550; J7030; 80320

== ENCOUNTER 2016-08-28 15:54 | Inpatient (IN) ==
[2016-08-28] MEDS ORDERED: DEMEROL IV PRN (17:03)
[2016-08-28] MEDS: SODIUM CHLORIDE 0.9% INJ PRN (17:30)
[2016-08-28] MEDS: PHENERGAN IV PRN (17:30)
[2016-08-28] MEDS: NS 1,000 ML IV SCH ×2 (17:30→22:15)
[2016-08-28 17:34] LABS: MANUAL DIFF NEEDED? NO
[2016-08-28 17:50] LABS: BASO% 0.2 % (0.0-0.8); EOS# 0.12 X1000 (0.0-0.7); EOS% 1.3 % (0.0-10.0); HEMATOCRIT 46.1 % (37.0-47.0); IMM GRAN# 0.03 X1000 (0.0-0.04); IMM GRAN% 0.3 % (0.0-0.5); LYMPH# 1.71 X1000 (1.2-3.4); LYMPH% 17.8 % (20.5-51.1); MCH 29.6 PG (27-31); MCHC 34.7 g/dL (33-37); MCV 85.2 FL (81-99); MONO% 11.5 % (1.7-9.3); MPV 11.4 FL (7.4-10.4); NEUT% 68.9 % (42.2-75.2); PLT 254 X1000 (130-400); RBC 5.41 XMIL (4.2-5.4)
[2016-08-28] MEDS: SODIUM CHLORIDE 0.9% INJ SCH (18:18)
[2016-08-28] MEDS: PROTONIX IV SCH (18:18)
[2016-08-28 18:36] LABS: CALCIUM 9.2 mg/dL (8.8-10.2); TOTAL BILIRUBIN 0.82 mg/dL (0.20-1.00); TOTAL PROTEIN 7.3 g/dL (6.3-8.3)
[2016-08-28 18:37] LABS: POTASSIUM 2.3 mmol/L (3.5-5.1)
[2016-08-28] MEDS ORDERED: MAGNESIUM SULFATE 2 GM/S.W.I. 50 ML IV ONE (18:39)
[2016-08-28] MEDS: DILAUDID IV PRN (18:46)
--- NOTE | 2016-08-28 19:08 | HISTORY AND PHYSICAL ---
CHIEF COMPLAINT: Abdominal pain. Intractable nausea, vomiting. HISTORY OF PRESENT ILLNESS: She is a 46-year-old white female, recently discharged from the hospital after detoxing from alcohol with withdrawal, came in with intractable nausea, vomiting, abdominal pain. Symptoms are out of proportion to the objective findings. She has known history of chronic pancreatitis and also bulimia. She is losing weight. She was seen in between in the emergency room. In my office she is dehydrated and admitted to the hospital for IV fluids, replace the potassium. Labs are pending. She has a seeking for IV Dilaudid that only helps to relieve the pain. She denies drinking any alcohol. PAST MEDICAL HISTORY: Chronic pancreatitis, diverticulosis, anxiety and depression, nicotine dependency, borderline personality disorder, acid reflux disease, history of bulimia. PAST SURGICAL HISTORY: Cholecystectomy, ERCP. CURRENT MEDICINES: Protonix 40 daily, Ambien 10 at bedtime, Creon 1 tablet t.i.d., Prozac 20 daily, Geodon 40 daily, trazodone 300 bedtime, Inderal 40 p.o. b.i.d., Rivotril once a month, Ultram as needed, potassium 20 mEq daily. ALLERGIES: Not known. 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 Smoking half a pack a day. She has been sober for the last 1 month. FAMILY HISTORY: Father is 74 years old. Mom has hypertension and hyperlipidemia. Aunt had a colon cancer. Last menstrual period was 2014. REVIEW OF SYSTEMS: HEENT: No headache. No dizziness. No vision problem. No earache. No sore throat. Neck: No goiter. No lymphadenopathy. No bruit. Cardiopulmonary: No chest pain, shortness of breath, PND, orthopnea. GI: Intractable nausea, vomiting, upper abdominal pain. No constipation, no bleeding per rectum. : No history of hesitancy, frequency, dysuria or hematuria. No swelling of legs. No joint pain. Skin: No skin rashes. Neurologic: No focal symptoms or weakness. PHYSICAL EXAMINATION: VITAL SIGNS: Stable. 5 feet 9, 138 pounds. HEENT: Dehydrated. Emotional, with a lot of pain, crying. Dry mucous membranes. NECK: Supple. No lymphadenopathy. CHEST: Bilateral air entry. No rales, no wheezing. HEART: Sounds are regular. Tachycardic. ABDOMEN: Belly is soft. No signs of peritonitis. No masses palpable. EXTREMITIES: No peripheral edema, cyanosis, clubbing. NEUROLOGIC: No obvious deficits. INVESTIGATIONS: CBC: White cell count 9.5, hematocrit 46, platelets 254,000. SMA7: Sodium 124, potassium 2.3. Creatinine 1.4, glucose 124, AST and ALT slightly high. CT scan of the abdomen and pelvis recently on 08/06/2016: Diverticulosis, cholecystectomy, consistent with chronic pancreatitis. ASSESSMENT AND PLAN: 1. 46-year-old white female, admitted to the hospital with intractable nausea, vomiting, with underlying chronic pancreatitis, gastroparesis, bulimia, associated with hyponatremia, hypokalemia and dehydration. Plan is IV fluids, IV potassium, IV magnesium and symptomatic treatment. Phenergan for nausea and Dilaudid for pain. 2. Deep venous thrombosis, gastrointestinal prophylaxis with Lovenox and Protonix respectively. If the symptoms will not improve, repeat the CT. 3. Alcohol abuse. Continue on Vivitrol once a month. 4. We will reconcile home medicines once her situation is controlled and will follow up. [facility], [place]
[2016-08-28] MEDS: POTASSIUM CHLORIDE 60 MEQ in NS 500 ML IV SCH (20:29)
[2016-08-29] MEDS: AMBIEN PO PRN ×2 (00:59→22:08)
[2016-08-29] MEDS: POTASSIUM CHLORIDE 60 MEQ in NS 500 ML IV SCH (03:45)
[2016-08-29] MEDS: DILAUDID IV PRN ×3 (05:55→17:30)
[2016-08-29 06:02] LABS: MANUAL DIFF NEEDED? NO
[2016-08-29 06:12] LABS: BASO% 0.3 % (0.0-0.8); EOS# 0.21 X1000 (0.0-0.7); EOS% 3.5 % (0.0-10.0); HEMOGLOBIN 13.8 g/dL (12.0-16.0); LYMPH# 1.97 X1000 (1.2-3.4); LYMPH% 32.5 % (20.5-51.1); MCH 29.7 PG (27-31); MCHC 33.7 g/dL (33-37); MCV 88.4 FL (81-99); MONO% 9.9 % (1.7-9.3); MPV 10.9 FL (7.4-10.4); NEUT% 53.8 % (42.2-75.2); PLT 201 X1000 (130-400); RBC 4.64 XMIL (4.2-5.4)
[2016-08-29 06:30] LABS: CALCIUM 8.1 mg/dL (8.8-10.2)
[2016-08-29 07:16] LABS: SED RATE 0 mm/hr (0-20)
--- NOTE | 2016-08-29 08:09 | Diag Imaging Result Document ---
PROCEDURE NAME: SANDRA ABDOMEN - 08/28/2016 SUPINE RADIOGRAPH OF THE ABDOMEN AND PELVIS, 1 VIEW: COMPARISON: 12/27/2015. FINDINGS: Cholecystectomy clips are noted in the right upper quadrant. There are unremarkable bowel gas and stool patterns. There are stable phleboliths projecting over the pelvis. There is no radiographic evidence of constipation. IMPRESSION: No evidence of acute pathology.
[2016-08-29] MEDS: POTASSIUM CHLORIDE 20 MEQ/SWI 100 ML IV SCH ×3 (12:05→23:00)
[2016-08-29] MEDS: SODIUM CHLORIDE 0.9% INJ SCH ×2 (12:53→17:32)
[2016-08-29] MEDS: PHENERGAN IV PRN (12:54)
[2016-08-29] MEDS ORDERED: POTASSIUM CHLORIDE 20 MEQ/SWI 100 ML IV ONE (14:00)
[2016-08-29] MEDS: NS 1,000 ML IV SCH ×3 (15:37→22:23)
[2016-08-29] MEDS ORDERED: POTASSIUM CHLORIDE 20 MEQ/SWI 100 ML IV SCH (17:00)
[2016-08-29] MEDS: PROTONIX IV SCH (17:31)
[2016-08-30] MEDS: DILAUDID IV PRN ×2 (08:38→17:02)
[2016-08-30] MEDS: CREON PO SCH ×3 (09:45→17:02)
[2016-08-30] MEDS: GEODON PO SCH (09:45)
[2016-08-30] MEDS: KLOR-CON PO SCH (09:45)
[2016-08-30] MEDS: NS + KCL 40 MEQ 1,000 ML IV SCH ×2 (10:56→22:36)
[2016-08-30] MEDS: PROTONIX IV SCH (17:02)
[2016-08-30] MEDS: SODIUM CHLORIDE 0.9% INJ SCH (17:02)
[2016-08-30] MEDS: PROZAC PO SCH (20:31)
[2016-08-30] MEDS: DESYREL PO SCH (20:31)
[2016-08-30] MEDS: AMBIEN PO SCH (22:35)
[2016-08-31] MEDS: DILAUDID IV PRN ×3 (07:35→20:45)
[2016-08-31] MEDS: PHENERGAN IV PRN ×3 (07:43→20:45)
[2016-08-31] MEDS: NS + KCL 40 MEQ 1,000 ML IV SCH ×2 (08:36→23:29)
[2016-08-31] MEDS: CREON PO SCH ×3 (08:36→18:10)
[2016-08-31] MEDS: KLOR-CON PO SCH (08:36)
[2016-08-31] MEDS: GEODON PO SCH (08:36)
[2016-08-31] MEDS ORDERED: SODIUM CHLORIDE 0.9% INJ ONE (11:57)
[2016-08-31] MEDS ORDERED: PHENERGAN IV ONE (11:57)
[2016-08-31] MEDS: PROTONIX IV SCH (18:10)
[2016-08-31] MEDS: SODIUM CHLORIDE 0.9% INJ PRN (20:45)
[2016-08-31] MEDS: AMBIEN PO SCH (22:00)
[2016-08-31] MEDS: PROZAC PO SCH (22:00)
[2016-08-31] MEDS: DESYREL PO SCH (22:00)
[2016-08-31] MEDS: AMBIEN PO PRN (22:00)
[2016-09-01] MEDS: NS + KCL 40 MEQ 1,000 ML IV SCH ×2 (07:44→11:25)
[2016-09-01] MEDS: DILAUDID IV PRN (07:44)
[2016-09-01] MEDS: PHENERGAN IV PRN (07:44)
[2016-09-01] MEDS: CREON PO SCH ×3 (08:58→17:18)
[2016-09-01] MEDS: KLOR-CON PO SCH (08:59)
[2016-09-01] MEDS: GEODON PO SCH (08:59)
[2016-09-01 12:18] LABS: PROTIME 10.5 Seconds (9.2-11.7)
--- NOTE | 2016-09-01 12:25 | PROGRESS NOTE ---
DATE: 09/01/2016 SUBJECTIVE: The patient continues to have nausea, vomiting, and abdominal pain requiring Dilaudid and Phenergan. She threw up yesterday; not tolerating the diet very well. IV access has blown up. Nurses tried several times. Waiting for a PICC line. REVIEW OF SYSTEMS: HEENT: No headache. No dizziness. Cardiopulmonary: None reported. GI: Nausea, vomiting, chronic abdominal pain. No constipation. Extremities: No swelling of feet. Neurologic: No focal symptoms. OBJECTIVE: Vital Signs: Stable. Temperature is 98 degrees, heart rate is 90, blood pressure is 144/74. HEENT: Atraumatic, normocephalic. Pupils equal, react to light. Neck: Supple. No lymphadenopathy. Chest: Clear to auscultation. Heart: Sounds are regular. Abdomen: Belly is soft. No signs of peritonitis noted. LABS: Last labs were obtained 08/29. SMA 7 is potassium 3.0. ASSESSMENT AND PLAN: 1. Chronic pancreatitis due to alcohol. Symptomatic treatment with Dilaudid and Phenergan. 2. Dehydration. Off the IV fluids. Check the electrolytes in the morning. 3. Alcoholic detox program. On Vivitrol. 4. Depression with anxiety. Under the care of a psychiatrist. Waiting for ECT. 5. Chronic insomnia. On Ambien. 6. If she tolerates the diet well without taking narcotics and pain medicine will be discharged home. Repeat the labs in the morning. cc: Mike Dickson MD
[2016-09-01] MEDS ORDERED: NS 0 ML ONE (14:09)
[2016-09-01] MEDS: ULTRACET 37.5MG/325MG PO SCH ×2 (14:33→21:01)
[2016-09-01] MEDS: PROTONIX IV SCH (17:18)
[2016-09-01] MEDS: PROZAC PO SCH (21:00)
[2016-09-01] MEDS: DESYREL PO SCH (21:02)
[2016-09-01] MEDS: AMBIEN PO SCH (21:02)
[2016-09-02] MEDS: NS + KCL 40 MEQ 1,000 ML IV SCH (05:41)
[2016-09-02] MEDS: ULTRACET 37.5MG/325MG PO SCH (06:13)
[2016-09-02 06:25] LABS: MANUAL DIFF NEEDED? NO
[2016-09-02 06:32] LABS: BASO% 0.6 % (0.0-0.8); EOS# 0.23 X1000 (0.0-0.7); EOS% 3.4 % (0.0-10.0); HEMATOCRIT 37.9 % (37.0-47.0); HEMOGLOBIN 12.2 g/dL (12.0-16.0); IMM GRAN# 0.02 X1000 (0.0-0.04); IMM GRAN% 0.3 % (0.0-0.5); LYMPH# 1.73 X1000 (1.2-3.4); LYMPH% 25.6 % (20.5-51.1); MCH 29.9 PG (27-31); MCHC 32.2 g/dL (33-37); MCV 92.9 FL (81-99); MONO# 0.51 X1000 (0.11-0.59); MONO% 7.6 % (1.7-9.3); MPV 11.6 FL (7.4-10.4); NEUT% 62.5 % (42.2-75.2); PLT 193 X1000 (130-400); RBC 4.08 XMIL (4.2-5.4)
[2016-09-02 07:12] LABS: AGAP 12; BUN 2 mg/dL (8-22); CALCIUM 8.5 mg/dL (8.8-10.2); CHLORIDE 101 mmol/L (98-107); COSMO 275; MAGNESIUM 1.3 mg/dL (1.5-2.7); POTASSIUM 3.8 mmol/L (3.5-5.1); SODIUM 140 mmol/L (136-145); TCO2 27 mmol/L (25-35)
[2016-09-02 07:37] VITALS: BP 139/94
[2016-09-02] MEDS: KLOR-CON PO SCH (08:01)
[2016-09-02] MEDS: GEODON PO SCH (08:01)
[2016-09-02] MEDS: CREON PO SCH (08:01)
[2016-09-02] MEDS ORDERED: PHENERGAN PO ONE (09:25)
[2016-09-02] MEDS: SODIUM CHLORIDE 0.9% INJ PRN (09:33)
--- NOTE | 2016-09-02 21:07 | DISCHARGE SUMMARY ---
ADMISSION DATE: 08/28/2016 DISCHARGE DATE: 09/02/2016 DISCHARGING DIAGNOSIS: Intractable nausea, vomiting due to chronic pancreatitis. SECONDARY DIAGNOSIS: 1. Dehydration. 2. Hypokalemia. 3. Hypomagnesemia. 4. Chronic pancreatitis. 5. Diverticulosis. 6. Anxiety and depression. 7. Nicotine dependency. 8. Acid reflux disease. 9. History of bulimia. 10. Gastroparesis. BRIEF HISTORY: Please see the H and P that was done on 08/28/2016. In brief, she is a 46-year- old white female, who has been readmitted to the hospital with abdominal pain, nausea, vomiting, associated with potassium 2.9, sodium 122. The pain probably due to a combination of chronic pancreatitis and gastroparesis. She was given IV fluids, replaced the potassium and magnesium. She has been asking for narcotics. She was already going for Vivitrol injections for detox from alcohol. She is refusing outpatient AA meetings. She is also due for electroconvulsive therapy treatment by Dr. Nelson on 09/23/2016 in [facility]. The patient is able to tolerate the diet. Continues to have intermittent nausea. 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 LABORATORIES: At the time of discharge, as follows, CBC: White cell count 6.7, hematocrit 37, platelets 193,000. SMA7: Sodium 140, potassium 3.8, chloride 101, CO2 27, BUN 2, creatinine 0.6, calcium 8.5, magnesium 1.3. LFTs were normal. Plasma alcohol level is negative. DISCHARGE INSTRUCTIONS: The patient was discharged home in a stable condition with the following instructions: Mag oxide 4 mg daily, potassium 20 mEq daily, Vivitrol injection 380 mg once a month, trazodone 300 bedtime, Geodon 40 daily, Prozac 20 mg daily, Creon 1 tablet t.i.d., Ambien 10 at bedtime, Protonix 40 daily. Phenergan for p.r.n. nausea. Follow up in my office next week. Also see Dr. Nelson for electroconvulsive therapy treatment. cc: Mike Dickson MD
== END 2016-09-02 09:47 | disposition home or self-care (01) ==
LOC: DIRADM 15:54 → 4N 16:18
PROVIDERS: ADMIT Internal Medicine; ATTEND Internal Medicine

== ENCOUNTER 2016-12-21 18:07 | Inpatient (IN) ==
[2016-12-21 20:28] LABS: MANUAL DIFF NEEDED? NO
[2016-12-21 20:30] LABS: BASO% 0.4 % (0.0-0.8); EOS# 0.12 X1000 (0.0-0.7); EOS% 1.1 % (0.0-10.0); HEMATOCRIT 44.3 % (37.0-47.0); HEMOGLOBIN 15.3 g/dL (12.0-16.0); IMM GRAN# 0.04 X1000 (0.0-0.04); IMM GRAN% 0.4 % (0.0-0.5); LYMPH# 2.42 X1000 (1.2-3.4); LYMPH% 21.3 % (20.5-51.1); MCH 30.8 PG (27-31); MCHC 34.5 g/dL (33-37); MCV 89.1 FL (81-99); MONO# 1.03 X1000 (0.11-0.59); MONO% 9.1 % (1.7-9.3); MPV 12.2 FL (7.4-10.4); NEUT% 67.7 % (42.2-75.2); PLT 249 X1000 (130-400); RBC 4.97 XMIL (4.2-5.4)
[2016-12-21 21:22] LABS: ALBUMIN 4.3 g/dL (3.5-5.0); CALCIUM 9.4 mg/dL (8.8-10.2); POTASSIUM 3.3 mmol/L (3.5-5.1); TOTAL BILIRUBIN 0.54 mg/dL (0.20-1.00); TOTAL PROTEIN 7.7 g/dL (6.3-8.3)
[2016-12-21] MEDS ORDERED: AMBIEN PO SCH (23:30)
--- NOTE | 2016-12-22 00:23 | HISTORY AND PHYSICAL ---
PRIMARY CARE PHYSICIAN: Dr. Dickson. CHIEF COMPLAINTS: Abdominal pain. HISTORY OF PRESENTING ILLNESS: This is a 46-year-old female with a history of chronic pancreatitis and alcoholism who apparently is in recovery since July 2016. The patient states that over the past day or 2 she started developing nausea, vomiting and abdominal cramps. She had presented to emergency department and she was in moderate abdominal discomfort. She rated the pain about 8/10 and states that it seemed to be worsening. She was evaluated in the ER, she was noted to have elevated amylase and due to her presenting symptoms, it was thought that she would need admission for further evaluation and management. At time my examination she had denied any headache, fever, chills, chest pain, shortness of breath, hemoptysis, melena or weight changes but complained of abdominal pain and nausea, vomiting. PAST MEDICAL HISTORY: Includes chronic pancreatitis. PAST SURGICAL HISTORY: Cholecystectomy, bile duct stent. ALLERGIES: No known drug allergies. CURRENT MEDICATIONS: As listed in the medication reconciliation sheet. SOCIAL HISTORY: Twenty pack years history of smoking, history of alcohol abuse in the past. She has been quit since July 2016. She denies any illicit drug use. FAMILY HISTORY: No history of coronary disease. REVIEW OF SYSTEMS: Twelve point review systems is as in HPI. Other systems negative. PHYSICAL EXAMINATION: GENERAL: Cooperative, friendly female, she is resting comfortably now. VITAL SIGNS: Temperature 99.2 degrees, pulse 107, respirations 20, blood pressure 143/106. HEENT: Atraumatic, normocephalic. Extraocular movements intact. PERRLA. NECK: No masses. CHEST: Clear to auscultation. CARDIOVASCULAR: Regular rate and rhythm. ABDOMEN: Soft. Positive bowel sounds. EXTREMITIES: No edema. NEURO: She is awake, alert, oriented x3. : No bladder distention. SKIN: Warm. LABORATORIES AND STUDIES: WBC 11.36, hemoglobin 15.3, hematocrit 44.3, platelets 249,000. Amylase is 356, sodium 126, potassium 3.3, chloride is 85, CO2 27, BUN is 19, creatinine is 1.0, glucose is 109. ASSESSMENT: A 46-year-old female with a history of chronic pancreatitis and alcoholism who apparently is on recovery as per patient since July 2016. She present to emergency department complaint abdominal pain, is noted to have elevated amylase and her symptoms consistent with pancreatitis. Subsequently she will need hospitalization for further management. 1. Abdominal pain. 2. Acute on chronic pancreatitis. 3. Chronic alcoholism in recovery is receiving albuterol. 4. Hyponatremia. PLAN: 1. We will admit patient to medical floor. 2. Continue with support treatment, IV fluids, antiemetics. 3. Difficult to give patient IV pain medications due to the fact that she was getting naltrexone which is an opiate antagonist. 4. Will obtain a CT of the abdomen and pelvis. 5. Will monitor electrolytes and optimize it. 6. We will put patient on DVT prophylaxis SCD. 7. We will continue to follow and reassess. cc: MD Mike Shi MD
[2016-12-22] MEDS ORDERED: PROZAC PO SCH (00:30)
[2016-12-22] MEDS: NS 1,000 ML IV SCH ×3 (00:31→20:50)
[2016-12-22] MEDS: ZOFRAN IV PRN ×2 (00:31→07:00)
[2016-12-22] MEDS: DESYREL PO SCH ×2 (00:31→20:49)
[2016-12-22] MEDS: TORADOL IV PRN ×4 (00:39→18:10)
[2016-12-22 06:01] LABS: MANUAL DIFF NEEDED? NO
[2016-12-22 06:06] LABS: BASO% 0.4 % (0.0-0.8); HEMATOCRIT 41.7 % (37.0-47.0); IMM GRAN# 0.02 X1000 (0.0-0.04); IMM GRAN% 0.3 % (0.0-0.5); LYMPH% 32.6 % (20.5-51.1); MCH 30.4 PG (27-31); MCHC 33.6 g/dL (33-37); MCV 90.5 FL (81-99); MONO# 0.67 X1000 (0.11-0.59); MONO% 9.9 % (1.7-9.3); MPV 11.8 FL (7.4-10.4); NEUT% 53.8 % (42.2-75.2); PLT 192 X1000 (130-400); RBC 4.61 XMIL (4.2-5.4)
[2016-12-22 06:30] LABS: AGAP 14; BUN 19 mg/dL (8-22); CALCIUM 8.7 mg/dL (8.8-10.2); CHLORIDE 88 mmol/L (98-107); COSMO 265; SODIUM 131 mmol/L (136-145); TCO2 29 mmol/L (25-35)
[2016-12-22 06:52] LABS: POTASSIUM 2.5 mmol/L (3.5-5.1)
[2016-12-22] MEDS: PROTONIX PO SCH (07:03)
[2016-12-22] MEDS: POTASSIUM CHLORIDE 20 MEQ/SWI 20 MEQ/100 ML IVPB IV SCH ×2 (07:36→11:53)
[2016-12-22] MEDS: PROZAC PO SCH (09:03)
[2016-12-22] MEDS: GEODON PO SCH (09:03)
[2016-12-22] MEDS: CREON PO SCH ×3 (09:03→18:10)
[2016-12-22] MEDS: SODIUM CHLORIDE 0.9% INJ PRN ×2 (11:55→18:09)
[2016-12-22] MEDS: PHENERGAN IV PRN ×2 (11:55→18:09)
--- NOTE | 2016-12-22 16:07 | PROGRESS NOTE ---
DATE: 12/22/2016 SUBJECTIVE: Patient complains of epigastric pain. OBJECTIVE: Vital signs: Afebrile, pulse 83, respirations 16, blood pressure 111/77, O2 saturation room air 94-95%. CARDIOVASCULAR: Regular rhythm and rate without murmur. Lungs: Clear to auscultation. Abdomen: Soft. Mild epigastric tenderness. No mass, organomegaly, no rebound or guarding. Extremities: No calf tenderness, cords or edema. Neurologic: Patient arousable and answers questions appropriately. No focal deficits. LABORATORY: Show white count down to 6.7, down from 11.3 yesterday. Hemoglobin 14, platelets 192,000. Sodium up from 126 to 131. Potassium 2.5, down from 3.3, chloride 88, CO2 of 29, BUN 19, creatinine 0.9, glucose 101. Calcium 8.7, amylase last evening was 356. LFTs normal. Urine test negative. ASSESSMENT: 1. Chronic pancreatitis. 2. Alcohol abuse. 3. Chronic anxiety and depression. Followed by Dr. Nelson, psychiatrist. 4. Hyponatremia. 5. Hypokalemia. PLAN: She has been on Vivitrol. PLAN: So will continue to treat with Toradol for pain control. Give her IV hydration, potassium supplementation. Monitor her potassium, sodium, magnesium closely, along with amylase, lipase, CMP, CBC. She may need a CT scan of the abdomen and pelvis in the morning if she does not improve. She wishes to change from Zofran to Phenergan for nausea and I will do that. Continue prophylaxis of peptic ulcer disease with Protonix. Continue her Creon. Rest her bowels at this time with clear liquids. cc: MD Mike Durbin MD
[2016-12-22] MEDS: AMBIEN PO SCH (20:49)
[2016-12-22] MEDS ORDERED: DESYREL PO SCH (21:00)
[2016-12-23] MEDS: PROTONIX PO SCH ×2 (05:44→07:59)
[2016-12-23] MEDS: PHENERGAN IV PRN ×6 (05:45→22:37)
[2016-12-23] MEDS: TORADOL IV PRN ×3 (05:45→22:37)
[2016-12-23 05:49] LABS: MANUAL DIFF NEEDED? NO
[2016-12-23 05:57] LABS: BASO% 0.5 % (0.0-0.8); EOS# 0.21 X1000 (0.0-0.7); EOS% 3.8 % (0.0-10.0); HEMATOCRIT 38.7 % (37.0-47.0); HEMOGLOBIN 12.9 g/dL (12.0-16.0); LYMPH# 1.68 X1000 (1.2-3.4); LYMPH% 30.5 % (20.5-51.1); MCH 30.6 PG (27-31); MCHC 33.3 g/dL (33-37); MCV 91.7 FL (81-99); MONO# 0.52 X1000 (0.11-0.59); MONO% 9.4 % (1.7-9.3); MPV 11.6 FL (7.4-10.4); NEUT% 55.8 % (42.2-75.2); PLT 181 X1000 (130-400); RBC 4.22 XMIL (4.2-5.4)
[2016-12-23 06:10] LABS: AGAP 11; ALBUMIN 3.6 g/dL (3.5-5.0); ALKALINE PHOSPHATASE 62 U/L (32-104); AMYLASE 60 U/L (20-200); BUN 13 mg/dL (8-22); CALCIUM 8.8 mg/dL (8.8-10.2); CHLORIDE 94 mmol/L (98-107); COSMO 274; GOT 14 U/L (10-30); GPT 11 U/L (10-36); LIPASE 80 U/L (13-60); MAGNESIUM 2.3 mg/dL (1.5-2.7); POTASSIUM 2.9 mmol/L (3.5-5.1); SODIUM 137 mmol/L (136-145); TCO2 32 mmol/L (25-35); TOTAL BILIRUBIN 0.52 mg/dL (0.20-1.00); TOTAL PROTEIN 5.9 g/dL (6.3-8.3)
[2016-12-23] MEDS: NS 1,000 ML IV SCH ×3 (07:58→22:35)
[2016-12-23] MEDS ORDERED: KLOR-CON PO ONE (07:59)
[2016-12-23] MEDS: SODIUM CHLORIDE 0.9% INJ PRN ×4 (09:51→18:31)
[2016-12-23] MEDS ORDERED: POTASSIUM CHLORIDE 40 MEQ/SWI 40 MEQ/100 ML IVPB IV ONE (10:18)
[2016-12-23] MEDS: POTASSIUM CHLORIDE 20 MEQ/SWI 20 MEQ/100 ML IVPB IV SCH ×2 (11:18→15:27)
[2016-12-23] MEDS ORDERED: POTASSIUM CHLORIDE 20 MEQ/SWI 20 MEQ/100 ML IVPB IV SCH (12:00)
[2016-12-23] MEDS: CREON PO SCH ×4 (14:36→19:09)
[2016-12-23] MEDS: PROZAC PO SCH ×2 (14:37→19:07)
[2016-12-23] MEDS: GEODON PO SCH (14:37)
[2016-12-23] MEDS: KLONOPIN PO PRN (19:07)
--- NOTE | 2016-12-23 19:33 | PROGRESS NOTE ---
DATE: 12/23/2016 SUBJECTIVE: Interval history was reviewed. Patient was doing very well. Denies of drinking any alcohol. Admitted to the hospital with intractable nausea, vomiting and hypokalemia, hypomagnesemia, elevated amylase. REVIEW OF SYSTEMS: HEENT: No headache. No dizziness. No earache. No sore throat. Neck: No goiter. No lymphadenopathy. No bruit. Cardiopulmonary: No chest pain, shortness of breath, PND, orthopnea. GI: Nausea, vomiting, upper abdominal pain. No constipation. : No history of dysuria, hesitancy, no swelling of feet. PAST MEDICAL HISTORY: Reviewed. PAST SURGICAL HISTORY: Reviewed. MEDICINES: Were reviewed. PHYSICAL EXAMINATION: Vital Signs: Afebrile. Vitals are stable. Blood pressure is 130/71, room air 99%. I's and O's are 1600 positive. HEENT: Exam within normal limits. Neck: Supple. No lymphadenopathy. No goiter. Chest: Bilateral air entry. No rales, no wheezing. Heart: Sounds are regular. Belly: Is soft, nontender. Good bowel sounds. No masses palpable. Extremities: No peripheral edema, cyanosis. Neuro: No obvious neurological deficits. INVESTIGATIONS: CBC, white cell count 5.5, hematocrit 38, platelets 181,000. SMA 7 sodium 137, potassium 2.9, chloride 94, BUN 13, creatinine 0.6, glucose 98. Liver function tests were normal and amylase was down, lipase is high. ASSESSMENT AND PLAN: 1. Abdominal pain due to pancreatitis presumed to be alcohol with chronic pancreatitis getting better. Slowly advance the diet. 2. Impending dehydration. 3. Hypokalemia, replace the potassium and continue IV fluids. 4. Chronic anxiety and depression currently on Geodon, Desyrel. 5. Gastrointestinal prophylaxis with Protonix. 6. Chronic insomnia on Ambien. 7. Depression on Prozac 40 daily. 8. Will follow up. LEVEL OF DOCUMENTATION: 25 minutes. cc: Mike Dickson MD
[2016-12-23] MEDS: DESYREL PO SCH (22:37)
[2016-12-23] MEDS: AMBIEN PO SCH (22:37)
[2016-12-24] MEDS: PROTONIX PO SCH (06:57)
[2016-12-24] MEDS: SODIUM CHLORIDE 0.9% INJ PRN ×4 (09:42→22:21)
[2016-12-24] MEDS: TORADOL IV PRN ×2 (09:42→18:06)
[2016-12-24] MEDS: PHENERGAN IV PRN ×4 (09:43→22:21)
[2016-12-24] MEDS: NS 1,000 ML IV SCH ×3 (09:43→21:07)
[2016-12-24] MEDS: PROZAC PO SCH (09:43)
[2016-12-24] MEDS: GEODON PO SCH (09:43)
[2016-12-24] MEDS: CREON PO SCH ×3 (09:43→17:08)
--- NOTE | 2016-12-24 19:02 | PROGRESS NOTE ---
DATE: 12/24/2016 SUBJECTIVE: Patient still has abdominal pain, nausea, vomiting, unable to tolerate the diet very well requiring IV potassium, IV Phenergan. Upon questioning she has some relapses of drinking alcohol in beginning of October. The patient has been taking Vivitrol. REVIEW OF SYSTEMS: None reported.Vital Signs: Stable, afebrile. HEENT: Within normal limits. Neck: Supple. No lymphadenopathy. Chest: Clear. Heart: Sounds are regular. Belly: Soft, nontender. Good bowel sounds. No masses palpable. Extremities: No peripheral edema, cyanosis. Neuro: No obvious neurological deficits. INVESTIGATIONS: CBC, white cell count 5.5, hematocrit 38, platelets 181,000. SMA 7 sodium 137, potassium 2.9, chloride 94, BUN 13, creatinine 0.6. LFTs were normal. Lipase is slightly elevated. ASSESSMENT AND PLAN: 1. Chronic pancreatitis with acute probably from alcohol. Continue on abstain. Will use the Vivitrol as needed. 2. Chronic pain. Nonnarcotics with Toradol. 3. Dehydration, hypokalemia, continue IV fluids and potassium, check the labs in the morning. 4. Chronic pancreatitis. Continue on the lipases, pancreatic enzyme supplementation. Gastrointestinal prophylaxis with IV Protonix and slowly advance the low-fat diet and see how she does and repeat the labs in the morning. LEVEL OF DOCUMENTATION: 25 minutes. cc: Mike Dickson MD
[2016-12-24] MEDS: DESYREL PO SCH (21:07)
[2016-12-24] MEDS: KLONOPIN PO PRN (21:07)
[2016-12-24] MEDS: AMBIEN PO SCH (21:07)
[2016-12-25 05:47] LABS: MANUAL DIFF NEEDED? NO
[2016-12-25] MEDS: NS 1,000 ML IV SCH ×3 (05:48→17:26)
[2016-12-25] MEDS: SODIUM CHLORIDE 0.9% INJ PRN ×3 (05:48→21:57)
[2016-12-25] MEDS: PHENERGAN IV PRN ×3 (05:48→21:57)
[2016-12-25 05:51] LABS: BASO% 0.3 % (0.0-0.8); EOS# 0.04 X1000 (0.0-0.7); EOS% 0.7 % (0.0-10.0); HEMATOCRIT 39.6 % (37.0-47.0); HEMOGLOBIN 13.1 g/dL (12.0-16.0); LYMPH# 1.06 X1000 (1.2-3.4); LYMPH% 17.9 % (20.5-51.1); MCH 30.5 PG (27-31); MCHC 33.1 g/dL (33-37); MCV 92.1 FL (81-99); MONO# 0.45 X1000 (0.11-0.59); MONO% 7.6 % (1.7-9.3); MPV 11.4 FL (7.4-10.4); NEUT% 73.5 % (42.2-75.2); PLT 215 X1000 (130-400)
[2016-12-25 06:46] LABS: AGAP 13; BUN 4 mg/dL (8-22); CALCIUM 8.3 mg/dL (8.8-10.2); CHLORIDE 99 mmol/L (98-107); COSMO 277; POTASSIUM 3.2 mmol/L (3.5-5.1); SODIUM 140 mmol/L (136-145); TCO2 28 mmol/L (25-35)
[2016-12-25] MEDS ORDERED: POTASSIUM CHLORIDE 40 MEQ in NS 250 ML IV SCH (07:56)
--- NOTE | 2016-12-25 09:02 | PROGRESS NOTE ---
DATE: 12/25/2016 SUBJECTIVE: Still has a little bit of abdominal pain. Decrease in nausea and vomiting. Tolerating the diet very well. REVIEW OF SYSTEMS: None reported. OBJECTIVE: Vital signs: On examination, afebrile. Vitals are stable. Input and output: I's and O's positive 3000 mL. HEENT: Within normal limits. Neck: Supple. No lymphadenopathy. Chest: Clear. Heart: Sounds are regular. Abdomen: Belly is soft, nontender. Good bowel sounds. No masses palpable. Neurologic: No focal deficits. INVESTIGATIONS: CBC is normal. SMA 7: Potassium 3.2. ASSESSMENT AND PLAN: 1. Hypokalemia. Replaced the potassium IV x2. 2. Pancreatitis is improving. 3. Alcohol surreptitiously use. Continue on withdrawal. If she tolerates well will discharge home today or in the morning. We will discuss with the family. LEVEL OF DOCUMENTATION: 25 minutes. cc: Mike Dickson MD
[2016-12-25] MEDS: GEODON PO SCH (10:37)
[2016-12-25] MEDS: PROZAC PO SCH (10:37)
[2016-12-25] MEDS: CREON PO SCH ×3 (10:37→17:17)
[2016-12-25] MEDS: PROTONIX PO SCH (10:40)
[2016-12-25] MEDS ORDERED: POTASSIUM CHLORIDE 40 MEQ in NS 250 ML IV ONE (18:00)
[2016-12-25] MEDS: AMBIEN PO SCH (21:57)
[2016-12-25] MEDS: DESYREL PO SCH (21:57)
[2016-12-26] MEDS: NS 1,000 ML IV SCH ×2 (05:05→14:26)
[2016-12-26] MEDS: PROTONIX PO SCH (06:22)
[2016-12-26] MEDS ORDERED: PHENERGAN PO PRN (07:36)
[2016-12-26] MEDS: PHENERGAN IM PRN ×3 (08:39→20:45)
--- NOTE | 2016-12-26 08:58 | Diag Imaging Result Doc PS360 ---
KUB ABDOMEN - 12/26/2016 INDICATION: Abdominal Pain TECHNIQUE: COMPARISON: 08/28/2016 FINDINGS: Stable surgical clips in the right upper quadrant. No bowel obstruction or free air. Numerous stable soft tissue calcifications in the spleen and pelvis. IMPRESSION: No acute disease. Electronically signed by Parish Cortez 12/26/2016 8:55 AM
[2016-12-26] MEDS: TORADOL IV PRN (09:52)
[2016-12-26] MEDS: PROZAC PO SCH (09:53)
[2016-12-26] MEDS: GEODON PO SCH ×3 (09:54→09:56)
[2016-12-26] MEDS: CREON PO SCH ×3 (09:54→17:23)
[2016-12-26] MEDS: KLONOPIN PO PRN (12:25)
[2016-12-26] MEDS ORDERED: TYLENOL PO PRN (17:47)
[2016-12-26] MEDS: AMBIEN PO SCH (20:34)
[2016-12-26] MEDS: DESYREL PO SCH (20:34)
--- NOTE | 2016-12-26 21:50 | PROGRESS NOTE ---
DATE: 12/26/2016 SUBJECTIVE: IV was problematic. Unable to get. Continues to have dry heaves, nausea and not able to eat very well. The patient was given p.o. Phenergan and it has not been affective. The patient was not offering any abdominal pain. Last BM was a few days ago. REVIEW OF SYSTEM: Nausea. No abdominal pain. Constipation. OBJECTIVE: Vital signs: Low grade fever. Vitals are stable. HEENT: Within normal limits. Neck: Supple. Chest: Clear. Heart: Sounds are regular. Abdomen: Belly is soft. No signs of peritonitis. Neurologic: No obvious neurological deficits. INVESTIGATIONS: None. ASSESSMENT AND PLAN: Persistent nausea. Change to Phenergan IM shot and see how she does and also order KUB to make sure she is not constipated. If she tolerates the diet for next 24 hours, will be discharged. Continue to monitor the p.o. intake. LEVEL OF DOCUMENTATION: 15 minutes. cc: Mike Dickson MD
[2016-12-27 05:07] VITALS: BP 138/92
[2016-12-27] MEDS: PROTONIX PO SCH (06:18)
[2016-12-27] MEDS: NS 1,000 ML IV SCH (06:19)
[2016-12-27] MEDS: CREON PO SCH (08:57)
[2016-12-27] MEDS: GEODON PO SCH (08:57)
[2016-12-27] MEDS: PROZAC PO SCH (08:57)
[2016-12-27] MEDS: PHENERGAN IM PRN (08:57)
--- NOTE | 2016-12-30 22:28 | DISCHARGE SUMMARY ---
ADMISSION DATE: 12/21/2016 DISCHARGE DATE: 12/27/2016 DISCHARGING DIAGNOSIS: Abdominal pain due to alcoholic chronic pancreatitis with relapse on Vivitrol. SECONDARY DIAGNOSES: 1. Hypokalemia. 2. Hypomagnesemia. 3. Dehydration. 4. Chronic pancreatitis due to alcohol. 5. Diverticulosis. 6. Acid reflux disease. 7. Anxiety/depression. 8. History of bulimia. 9. History of gastroparesis. BRIEF HISTORY: Please see the H and P that was done by hospitalist. In brief, she is a 46-year- old white female with above problems admitted to the hospital with abdominal pain with elevated amylase, lipase. She has history of chronic pancreatitis due to alcohol. She was given Vivitrol once a month for 6 months. Despite she had relapse in October and November. Nobody had checked alcohol level at the time of admission. The patient was given conservative management. Followup amylase, lipase came back normal. Patient has electrolyte abnormalities which includes low potassium, low magnesium for which she was replaced in IV. She was given Phenergan for nausea and nonnarcotic for pain control. She has been tolerating the diet very well. She was advised not to drink any alcohol. Despite multiple advises patient has failed detox programs. LABS: CBC, white cell count 5.9, hematocrit 39, platelets 215,000. SMA 7. Sodium 140, potassium 3.2, chloride 99, BUN 4, creatinine 0.5, glucose 107. Amylase is normal. Lipase is coming back to normal. DISCHARGE INSTRUCTIONS: Protonix 40 daily, pancreatic enzymes Creon 12,000 units t.i.d., Prozac 40 daily, Geodon 40 daily, trazodone 300 bedtime, Vivitrol was discontinued. Potassium 20 mEq daily, Klonopin 0.5 b.i.d. as needed, Ambien 5 mg daily, Phenergan suppository q.4 as needed for nausea. Follow up in my office in 10 days. cc: Mike Dickson MD
--- NOTE | 2017-01-01 19:10 | PROVIDER DOCUMENTATION ---
This chart was entered by López Garcia Scribe, acting as scribe for Nahum Man MD. HPI-Abdominal Pain/GI Problem - General Chief Complaint: Abdominal Pain Stated Complaint: ABD PAIN Time Seen by Provider: 12/21/16 19:37 Source: patient Allergies/Adverse Reactions: Patient Allergies Allergy/AdvReac Type Severity Reaction Status Date / Time No Known Allergies Allergy Verified 12/11/16 12:55 Home Medications: Home Medication List Medication Instructions Recorded Confirmed Last Taken Type Pantoprazole [Protonix] 40 mg PO DAILY@0700 09/02/15 12/21/16 12/21/16 08:00 History Lipase/Protease/Amylase [Julia Dr 1 each PO TID #90 capsule. 07/31/1612/21/16 09:00 Rx 12,000 Units Capsule] Fluoxetine [Prozac] 40 mg PO DAILY 08/07/16 12/22/16 12/21/16 08:00 History Trazodone [Desyrel] 300 mg PO HS 08/07/16 12/21/16 12/20/16 21:00 History Ziprasidone [Geodon] 40 mg PO DAILY 08/07/16 12/21/16 12/21/16 08:00 History Potassium Chloride 20 meq PO DAILY 08/28/16 12/21/16 12/21/16 08:00 History Clonazepam [Klonopin] 0.5 mg PO BID PRN PRN 14 Days 11/27/16 12/21/16 3 Days Ago Rx Zolpidem [Ambien] 5 mg PO QHS 12/22/16 12/22/16 12/20/16 History Promethazine HCl 12.5 mg RC 4XDAY PRN PRN #30 12/27/16 Unknown Rx supp.rect - History of Present Illness-ABD Nature of Presenting Problems: Pt is a 46 yowf who presents to ER with CC of RUQ/epigastric abdominal pain and vomiting since Friday. Pt reports that she has been unable to eat or take her potassium supplements due to her abdominal pain, and has been unable to retain food/liquids. Pt states that she has not seen her PCP (Dr. Dickson) yet, but reports that the last time she saw Dr. Dickson for pancreatitis, the only medicine that would relieve her pain was dilaudid. Pt reports that she has vomited 5-6 times in the past 24 hours and states that the pain she has now resembles her pancreatitis. Abdominal Pain Onset Location: reports: epigastric Pain Radiation: reports: back Quality of Pain: reports: aching, sharp Severity in ED: reports: mild, moderate Onset/Duration: reports: 4 days ago Timing: reports: still present Associated Symptoms: reports: back/neck pain, loss of appetite, nausea, vomiting . denies: anxiety, arm pain, chest pain, constipation, diaphoresis, diarrhea, fatigue, fever/chills, joint pain, muscle aches, shortness of breath, syncope, weakness, trouble walking Last BM: unsure Dark Stools Present?: reports: none noticed Rectal Bleeding: reports: none Rectal Pain: reports: none Review of Systems - Adult - REVIEW OF SYSTEMS - ADULT Constitutional: denies: chills, fever, fatique, night sweats, weight gain, weight loss Eyes: reports: no symptoms reported Ears, Nose, Mouth & Throat: reports: no symptoms reported Cardiovascular: reports: no symptoms reported Respiratory: reports: no symptoms reported Gastrointestinal: reports: abdominal pain, nausea, poor appetite, vomiting. denies: hematemesis, constipation, diarrhea, difficulty swallowing, frequent heartburn, rectal bleeding Genitourinary: reports: no symptoms reported Musculoskeletal: reports: no symptoms reported Integumentary: reports: no symptoms reported Neurological: reports: no symptoms reported Psychiatric: reports: no symptoms reported Endocrine: reports: no symptoms reported Hematologic/Lymphatic: reports: no symptoms reported Allergic/Immunologic: reports: no symptoms reported All Other Systems: Reviewed and Negative Past History - Adult - PAST MEDICAL HISTORY-ADULT Review of Records: reports: Nursing Assessment Review, Medications Reviewed Gastrointestinal: reports: colitis, pancreatitis, other (gastroparesis) Endocrine/Immune: reports: other (hypokalemia) - PRIOR SURGERIES/PROCEDURES Surgical/Procedure History: reports: colonoscopy, cholecystectomy - IMMUNIZATION STATUS Childhood Immunizations: See Nurse Assessment Flu Vaccine: See Nurse Assessment Physical Exam-General - PHYSICAL EXAM-ADULT Initial Vital Signs Reviewed: Yes - CONSTITUTIONAL General Appearance: appears well, alert, no apparent distress - EYES Eyes: PERRL/EOMI, pink conjunctivae - NECK Neck: non-tender, full range of motion, supple. negative: limited range of motion, lymphadenopathy - RESPIRATORY Respiratory: chest non-tender, lungs clear, normal breath sounds, no pleuratic chest pain, no respiratory distress, no accessory muscle use. negative: respiratory distress, decreased breath sounds, accessory muscle use, wheezing - CARDIOVASCULAR Cardiovascular: normal peripheral pulses, regular rate, rhythm. negative: bradycardia, tachycardia, irregularly irregular - GASTROINTESTINAL (ABDOMEN) Abdominal Exam: normal bowel sounds, soft, no organomegaly, no pulsatile mass, tenderness (midepigastric). negative: non tender - MUSCULOSKELETAL Back Exam: no CVA tenderness, no vertebral tenderness. negative: CVA tenderness , vertebral tenderness Extremity: non-tender, normal gait, no pedal edema, no calf tenderness. negative: deformity, erythema, inflammation, swelling, tenderness - PSYCHIATRIC Psych/Mental Status: normal mood/affect, normal thought content, normal thought process, oriented x 3 Progress - PLAN OF CARE/RESULTS Progress/Plan/Lab Results: Vital Signs - 8 hr 12/21/16 18:24 12/21/16 19:30 Temperature 99.2 F Pulse Rate 107 H 98 H Respiratory Rate 20 19 Blood Pressure 143/106 125/86 O2 Sat by Pulse Oximetry 97 97 Orders Category Date Time Status AMYLASE [CHEM] Stat Lab 12/21/16 19:38 Uncollected CBC WITH ELECTRONIC DIFF [HEME] Stat Lab 12/21/16 19:38 Uncollected COMPREHENSIVE METABOLIC PANEL [CHEM] Stat Lab 12/21/16 19:38 Uncollected Result Diagrams: 12/25/16 05:20 12/25/16 05:20 - CONSULTS/PCP/HOSPITALIST Notification #1 *Consult/PCP/Hospitalist*: Dr. Velasquez (Hospitalist) Time Discussed: 22:48 Consult Disposition: Admit Departure - Departure Date of Disposition Decision: 12/21/16 Time of Disposition Decision: 22:48 DIAGNOSIS: Chronic pancreatitis Qualifiers: Pancreatitis type: alcohol induced Qualified Code(s): K86.0 - Alcohol-induced chronic pancreatitis Abdominal pain Qualifiers: Abdominal location: unspecified location Qualified Code(s): R10.9 - Unspecified abdominal pain Disposition: ADMITTED INPATIENT 09 Certified Medical Emergency: Emergent Condition: Stable - Critical Care Note This patient required my direct & personal management of CC.: No Attestation - Physician/ ANDRIY Attestation The physician spent face to face time with patient:: Yes Advanced Practice Provider documentation review:: Supervising physician onsite and consulted in the evaluation and care of this patient. The physician did have a face to face encounter with the patient. This chart was documented by the indicated scribe, (López Garcia Scribe) and accurately reflects the services I performed and decisions made by me, Nahum Man MD, as attested by the provider's signature.
== END 2016-12-27 09:46 | disposition home or self-care (01) ==
LOC: ED 18:07 → SUATTDRO 23:51 → 4N 23:51
PROVIDERS: ADMIT Internal Medicine; ATTEND Internal Medicine